=== PATIENT | female | born 1945 | race Caucasian/White ===

== ENCOUNTER → 2023-12-17 11:18 | Outpatient (REF) | payer MEDICARE, OTHER, SELFPAY | LOC: HWRAD 11:18 | PROVIDERS: ATTENDING PHYSICIAN Podiatrist Foot & Ankle Surgery; FAMILY PHYSICIAN Internal Medicine | DX: M89.9 Disorder of bone, unspecified (principal) | CPT/HCPCS: 73630 ==

== ENCOUNTER → 2023-12-28 13:33 | Outpatient (REF) | payer MEDICARE, OTHER, SELFPAY | LOC: HWWDC 13:33 | PROVIDERS: ATTENDING PHYSICIAN Nurse Practitioner | DX: Z12.31 Encounter for screening mammogram for malignant neoplasm of breast (principal) | CPT/HCPCS: 77063; 77067 ==

== ENCOUNTER → 2023-12-29 10:09 | Outpatient (REF) | payer MEDICARE, OTHER, SELFPAY ==
[2023-12-29 12:03] LABS: % Eosinophils 4.3 % (0-6); % Immature Granulocytes 0.3 % (0-0.5); % Lymphocytes 21.1 % (20.5-51.1); % Monocytes 7.7 % (1.7-9.3); % Neutrophils 65.6 % (42.2-75.2); Absolute Basophils 0.1 10^3/uL (0-0.2); Absolute Eosinophils 0.3 10^3/uL (0-0.7); Absolute Lymphocytes 1.5 10^3/uL (1.2-3.4); Absolute Monocytes 0.6 10^3/uL (0.1-0.6); Absolute Neutrophils 4.7 10^3/uL (1.4-6.5); Hematocrit 43.8 % (37.0-47.0); Hemoglobin 14.8 g/dL (12.0-16.0); Mean Corp Hgb Conc. 33.8 g/dL (33.0-37.0); Mean Corpuscular Hgb 32.7 pg (27.0-31.0); Mean Corpuscular Volume 96.9 fL (81.0-99.0); Mean Platelet Volume 9.6 fL (7.4-10.4); Nucleated Red Blood Cells % 0 %; Platelet Count 286 10^3/uL (130-400); Red Blood Cell Count 4.52 10^6/uL (4.20-5.40); Red Cell Dist. Width 12.8 % (11.5-14.5); White Blood Cell Count 7.2 10^3/uL (4.8-10.8)
[2023-12-29 12:16] LABS: ALT (SGPT) 17 U/L (0-35); AST (SGOT) 27 U/L (14-36); Albumin 4.1 g/dl (3.5-5.0); Alkaline Phosphatase 77 U/L (38-126); Blood Urea Nitrogen 35 mg/dl (7-17); Calcium 9.8 mg/dl (8.4-10.2); Carbon Dioxide 31 mmol/L (22-30); Chloride 98 mmol/L (98-107); Glucose 95 mg/dl (70-99); HDL Cholesterol 99 mg/dl; LDL Cholesterol, Calculated 89 mg/dl; Potassium 4.1 mmol/L (3.5-5.1); Sodium 138 mmol/L (135-145); Total Bilirubin 1.4 mg/dl (0.2-1.3); Total Cholesterol 201 mg/dl (50-199); Total Protein 6.9 g/dl (6.3-8.2); Triglyceride 67 mg/dl (10-149); Very Low Density Lipoprotein 13 mg/dl (0-30); eGFR 38.51
[2023-12-29 12:47] LABS: TSH 0.05 uIU/ml (0.47-4.68)
[2023-12-29 13:20] LABS: Glycohemoglobin (HgbA1c) 5.8 % (4.0-5.6)
== END ==
LOC: HWLAB 10:09
PROVIDERS: ATTENDING PHYSICIAN Internal Medicine; REFERRING PHYSICIAN Internal Medicine Cardiovascular Disease
DX: R73.03 Prediabetes (principal); E78.5 Hyperlipidemia, unspecified; Z00.00 Encounter for general adult medical examination without abnormal findings; R53.83 Other fatigue
CPT/HCPCS: 36415; 80053; 80061; 83036; 84443; 85025

== ENCOUNTER → 2024-02-03 10:52 | Outpatient (REF) | payer MEDICARE, OTHER, SELFPAY ==
[2024-02-03 13:18] LABS: Free T3 3.73 pg/ml (2.77-5.27); Free T4 1.14 ng/dl (0.78-2.19)
[2024-02-03 13:32] LABS: TSH 0.14 uIU/ml (0.47-4.68)
[2024-02-05 12:10] LABS: Thyroglobulin Antibodies <0.9 IU/mL (0.0-4.0); Thyroid Peroxidase Ab (TPO) 1.8 IU/mL (0.0-9.0)
== END ==
LOC: HWLAB 10:52
PROVIDERS: ATTENDING PHYSICIAN Internal Medicine
DX: E03.9 Hypothyroidism, unspecified (principal); R53.83 Other fatigue
CPT/HCPCS: 36415; 84439; 84443; 84481; 86376; 86800

== ENCOUNTER → 2025-01-06 08:55 | Outpatient (REF) | payer MEDICARE, OTHER, SELFPAY ==
[2025-01-06 12:43] LABS: % Basophils 1.1 % (0-2); % Eosinophils 5.6 % (0-6); % Immature Granulocytes 0.3 % (0-0.5); % Lymphocytes 29.3 % (20.5-51.1); % Monocytes 9.4 % (1.7-9.3); % Neutrophils 54.3 % (42.2-75.2); Absolute Basophils 0.1 10^3/uL (0-0.2); Absolute Eosinophils 0.4 10^3/uL (0-0.7); Absolute Lymphocytes 1.9 10^3/uL (1.2-3.4); Absolute Monocytes 0.6 10^3/uL (0.1-0.6); Absolute Neutrophils 3.5 10^3/uL (1.4-6.5); Hematocrit 44.1 % (37.0-47.0); Hemoglobin 14.8 g/dL (12.0-16.0); Mean Corp Hgb Conc. 33.6 g/dL (33.0-37.0); Mean Corpuscular Hgb 32.5 pg (27.0-31.0); Mean Corpuscular Volume 96.7 fL (81.0-99.0); Mean Platelet Volume 9.7 fL (7.4-10.4); Nucleated Red Blood Cells % 0 %; Platelet Count 271 10^3/uL (130-400); Red Blood Cell Count 4.56 10^6/uL (4.20-5.40); White Blood Cell Count 6.5 10^3/uL (4.8-10.8)
[2025-01-06 13:18] LABS: ALT (SGPT) 17 U/L (0-35); AST (SGOT) 29 U/L (14-36); Albumin 4.6 g/dl (3.5-5.0); Alkaline Phosphatase 63 U/L (38-126); Blood Urea Nitrogen 28 mg/dl (7-17); Calcium 9.9 mg/dl (8.4-10.2); Carbon Dioxide 29 mmol/L (22-30); Chloride 98 mmol/L (98-107); Glucose 99 mg/dl (70-99); HDL Cholesterol 99 mg/dl; LDL Cholesterol, Calculated 77 mg/dl; Potassium 4.4 mmol/L (3.5-5.1); Sodium 137 mmol/L (135-145); Total Bilirubin 1.5 mg/dl (0.2-1.3); Total Cholesterol 189 mg/dl (50-199); Total Protein 7.1 g/dl (6.3-8.2); Triglyceride 65 mg/dl (10-149); Very Low Density Lipoprotein 13 mg/dl (0-30); eGFR 38.27
[2025-01-06 13:39] LABS: TSH 2.15 uIU/ml (0.47-4.68)
== END ==
LOC: HWLAB 08:55
PROVIDERS: ATTENDING PHYSICIAN Nurse Practitioner; FAMILY PHYSICIAN Internal Medicine; REFERRING PHYSICIAN Internal Medicine Cardiovascular Disease
DX: I10 Essential (primary) hypertension (principal); E78.00 Pure hypercholesterolemia, unspecified; Z00.00 Encounter for general adult medical examination without abnormal findings; R53.83 Other fatigue
CPT/HCPCS: 36415; 80053; 80061; 84443; 85025

== ENCOUNTER → 2025-02-08 10:27 | Outpatient (REF) | payer MEDICARE, OTHER, SELFPAY | LOC: EMG 10:27 | PROVIDERS: ATTENDING PHYSICIAN Orthopaedic Surgery Hand Surgery; FAMILY PHYSICIAN Internal Medicine | DX: M79.642 Pain in left hand (principal); R20.0 Anesthesia of skin; G56.02 Carpal tunnel syndrome, left upper limb | CPT/HCPCS: 95886; 95909 ==

== ENCOUNTER → 2025-02-16 11:03 | Outpatient (REF) | payer MEDICARE, OTHER, SELFPAY | LOC: HWRCS 11:03 | PROVIDERS: ATTENDING PHYSICIAN Internal Medicine Cardiovascular Disease; FAMILY PHYSICIAN Internal Medicine | DX: I48.0 Paroxysmal atrial fibrillation (principal); I34.1 Nonrheumatic mitral (valve) prolapse | CPT/HCPCS: 93306 ==

== ENCOUNTER 2025-03-17 06:48 | Day surgery (SDC) | payer MEDICARE, OTHER, SELFPAY ==
[2025-03-17] VITALS (13 sets, daily range): BP systolic 115–143; BP diastolic 66–91; BMI 26.1
[2025-03-17 07:59] LABS: % Basophils 0.9 % (0-2); % Eosinophils 5.2 % (0-6); % Immature Granulocytes 0.5 % (0-0.5); % Lymphocytes 22.2 % (20.5-51.1); % Monocytes 9.4 % (1.7-9.3); % Neutrophils 61.8 % (42.2-75.2); Absolute Basophils 0.1 10^3/uL (0-0.2); Absolute Eosinophils 0.5 10^3/uL (0-0.7); Absolute Monocytes 0.8 10^3/uL (0.1-0.6); Absolute Neutrophils 5.5 10^3/uL (1.4-6.5); Hematocrit 44.6 % (37.0-47.0); Hemoglobin 14.9 g/dL (12.0-16.0); Mean Corp Hgb Conc. 33.4 g/dL (33.0-37.0); Mean Corpuscular Volume 98.9 fL (81.0-99.0); Mean Platelet Volume 9.4 fL (7.4-10.4); Nucleated Red Blood Cells % 0 %; Platelet Count 256 10^3/uL (130-400); Red Blood Cell Count 4.51 10^6/uL (4.20-5.40); Red Cell Dist. Width 13.2 % (11.5-14.5); White Blood Cell Count 8.8 10^3/uL (4.8-10.8)
[2025-03-17 08:28] LABS: Blood Urea Nitrogen 32 mg/dl (7-17); Calcium 9.7 mg/dl (8.4-10.2); Carbon Dioxide 27 mmol/L (22-30); Chloride 105 mmol/L (98-107); Estimated Creatinine Clearance 29 ml/min; Glucose 108 mg/dl (70-99); Potassium 4.6 mmol/L (3.5-5.1); Sodium 139 mmol/L (135-145); eGFR 41.83
[2025-03-17] MEDS: LOW STRENGTH ASPIRIN 324 MG PO (09:02)
[2025-03-17] MEDS: NSS 1000 IV (14:24)
--- NOTE | 2025-03-17 19:04 | ITS.CL.CATH ---
[facility] - Catheterization
Cardiac Catheterization
Procedure Report:
LEFT AND RIGHT HEART CATHETERIZATION
Date of Procedure: March 17, 2025
Referring: Tulio Bender MD
PROCEDURES:
1. Left heart catheterization, coronary angiogram.
2. Moderate sedation.
INDICATION: ASD workup
ACCESS: Right radial artery, 6Fr. sheath, under US guidance.
HEMODYNAMICS : (mmHg)
RA (m) : 14
RV (s/d,m) : 54/5, 13
PA (s/d, m) : 48/14, 26
PCWP (m) : 13
PA saturation: 79.0% on room air
AO saturation: 95.0% on room air
IVC saturation: 75.8% on room air
Pulmonary capillary wedge saturation: 85.5% on room air
RV saturation: 80.6% on room air
High RA saturation: 73.9% on room air
Mid RA saturation: 77.8% on room air
Low SVC saturation: 71.8% on room air
High SVC saturation: 70.3% on room air
Cardiac Output : 4.23 L/min by Dez calculation
Cardiac Index : 2.49 L/min/m-2 by Dez calculation
Systemic vascular resistance: 1588 dsc^(-5)
Pulmonary vascular resistance: 1.28 hermosillo unit
QP over QS: 2.95
Heart rate: 80 bpm
AO (s/d) : 141/65
LVEDP : 16
No significant gradient across the aortic valve to suggest aortic stenosis.
CORONARY FINDINGS
Dominance: Right
Left Main Trunk (LMT): Large caliber vessel that gives rise to the LAD and LCx branches and is free of angiographic disease.
Left Anterior Descending Artery (LAD): Large caliber vessel that gives off 1 major diagonal branch as it courses along the anterior inter-ventricular groove before wrapping around the cardiac apex. The mid LAD has diffuse up to 70 to 80% stenosis
just distal to the takeoff of the diagonal branch.
Left Circumflex Artery (LCx): Large caliber vessel that gives off 2 small caliber obtuse marginal (OM) branches as it courses along the atrio-ventricular (AV) groove. The LCx and its branches are free of angiographic disease.
Right Coronary Artery (RCA): Large caliber dominant vessel that gives rise to the posterior descending artery (RPDA) and postero-lateral ventricular (RPLV) branches distally. The RCA and its branches are free of angiographic disease.
SEDATION: 47 minutes of procedural sedation was utilized. IV Midazolam and IV Fentanyl were administered. An independent medical coding instructor was present to assist with and help manage the patient's level of consciousness and physiologic status.
RADIATION SUMMARY: Fluoro Time (min): 4.8, Dose (mGy): 221, DAP (Gy.cm2) : 9.37
Closure Device: There were no immediate intra-procedural complications. The sheath was pulled in the custodial laborer and a vascular-band applied to the right wrist for radial artery hemostasis using the patent hemostasis technique.
CONCLUSIONS
1. The mid LAD has diffuse up to 70 to 80% stenosis just distal to the takeoff of the diagonal branch.
2. Pulmonary pressures are less than two thirds of the systemic pressures suggesting safety of VSD closure. Given RV dilatation noted on transthoracic echocardiogram with Qp/Qs showing significant flow across the ASD, recommend ASD closure
RECOMMENDATIONS
1. Wean radial band per protocol. Monitor right hand perfusion and for bleeding from the radial site following removal of the vascular-band following trans-radial access.
2. Continue aggressive medical therapy and risk factor modification for secondary CAD prevention.
3. Outpatient cardiac gated CT to assess for rims around the ASD to discuss role for percutaneous vs. surgical closure.
Copy to: Tulio Bender MD
Faye Carrasquillo MD, [facility], [facility]
== END 2025-03-17 17:35 | disposition home or self-care (01) ==
LOC: CATH 06:48
PROVIDERS: ATTENDING PHYSICIAN Internal Medicine Interventional Cardiology; FAMILY PHYSICIAN Internal Medicine
DX: I25.10 Atherosclerotic heart disease of native coronary artery without angina pectoris (principal); Q21.11 Secundum atrial septal defect; I49.3 Ventricular premature depolarization; I08.1 Rheumatic disorders of both mitral and tricuspid valves; Z79.01 Long term (current) use of anticoagulants; I70.0 Atherosclerosis of aorta
CPT/HCPCS: 99152; 99153; 93312; 93320; 93325; 80048; 85025; 93460; C1769; C1894; Q9967

== ENCOUNTER → 2025-03-27 14:40 | Outpatient (REF) | payer MEDICARE, OTHER, SELFPAY | LOC: RAD 14:40 | PROVIDERS: ATTENDING PHYSICIAN Internal Medicine Cardiovascular Disease; FAMILY PHYSICIAN Internal Medicine | DX: Q21.10 Atrial septal defect, unspecified (principal) | CPT/HCPCS: 71275; Q9967 ==

== ENCOUNTER 2025-05-19 05:20 | Inpatient (IN) | payer MEDICARE, OTHER, SELFPAY ==
[2025-05-12 08:40] VITALS: BMI 25.7
[2025-05-12 09:35] LABS: Hematocrit 41.0 % (37.0-47.0); Hemoglobin 13.9 g/dL (12.0-16.0); Mean Corp Hgb Conc. 33.9 g/dL (33.0-37.0); Mean Corpuscular Volume 97.6 fL (81.0-99.0); Nucleated Red Blood Cells % 0 %; Platelet Count 272 10^3/uL (130-400); Red Cell Dist. Width 12.9 % (11.5-14.5)
[2025-05-12 09:36] LABS: Urine Character Slightly Cloudy (Clear)
[2025-05-12 09:49] LABS: Urine Red Blood Cell 0-2 /HPF (0-2); Urine White Cell 16-20 /HPF (0-5)
[2025-05-12 09:51] LABS: INR 1.58; PT 19.1 Sec (11.4-14.6)
[2025-05-12 10:08] LABS: ALT (SGPT) 18 U/L (0-35); AST (SGOT) 24 U/L (14-36); Albumin 4.3 g/dl (3.5-5.0); Alkaline Phosphatase 53 U/L (38-126); Blood Urea Nitrogen 36 mg/dl (7-17); Calcium 9.6 mg/dl (8.4-10.2); Carbon Dioxide 27 mmol/L (22-30); Chloride 104 mmol/L (98-107); Estimated Creatinine Clearance 21 ml/min; Glucose 99 mg/dl (70-99); Potassium 4.2 mmol/L (3.5-5.1); Sodium 140 mmol/L (135-145); Total Protein 7.1 g/dl (6.3-8.2); eGFR 28.31
[2025-05-12 12:25] LABS: Glycohemoglobin (HgbA1c) 5.6 % (4.0-5.6)
--- NOTE | 2025-05-12 14:46 | CM ---
spoke to pt in PAT's, we discussed preop CABG teaching including sternal and driving restrictions. she is prev indep, lives alone in a 2 story home with 3 steps to enter. she has a friend/POA , Justine, who will stay with her after dc as needed. she
denies any dme's. she has the cardiac educ book, soap and instructions, plan is for CABG 05/19, cm role explained and all questions answered.
[2025-05-19] VITALS (17 sets, daily range): BP systolic 97–139; BP diastolic 51–67; BMI 25.3
[2025-05-19] MEDS: MAGNESIUM OXIDE 500 MG PO (05:47)
[2025-05-19] MEDS: LOPRESSOR 25 MG PO (05:48)
[2025-05-19] MEDS: BACTROBAN 2% OINTMENT 1 APPLIC NASAL ×2 (05:48→20:16)
[2025-05-19] MEDS: PROTONIX 40 MG PO (05:48)
[2025-05-19 06:04] LABS: Blood Urea Nitrogen 33 mg/dl (7-17); Calcium 9.8 mg/dl (8.4-10.2); Carbon Dioxide 22 mmol/L (22-30); Chloride 107 mmol/L (98-107); Estimated Creatinine Clearance 23 ml/min; Glucose 101 mg/dl (70-99); Potassium 3.6 mmol/L (3.5-5.1); Sodium 139 mmol/L (135-145); eGFR 30.32
--- NOTE | 2025-05-19 06:20 | W.CVOR.SURPR ---
CVOR Surgeon Immed Pre Op
-
I have examined this patient prior to performance of the scheduled procedure.
The patient's condition is unchanged from the time of the dictated/written History and
Physical and the patient is able to undergo the scheduled procedure.
ASD, MAZE, CABG
--- NOTE | 2025-05-19 06:45 | PTCARENOTE ---
Patient arrived for SDA. Confirmed 2xCHG showers at home. Patient weighed, vital signs takes, surgically clipped, lab work obtained, preop meds administered. Patient transferred at 0630 without incident.
[2025-05-19 07:11] LABS: ACT+ - POC 118 Seconds (82-134)
[2025-05-19 07:17] LABS: Urine Character Clear (Clear)
[2025-05-19 07:29] LABS: Urine Squamous Cell 0-2 /LPF (Few)
[2025-05-19 07:33] LABS: Urine Red Blood Cell 0-2 /HPF (0-2)
[2025-05-19 08:34] LABS: ACT+ - POC 632 Seconds (82-134)
[2025-05-19 09:08] LABS: ACT+ - POC 753 Seconds (82-134)
[2025-05-19 09:32] LABS: ACT+ - POC 567 Seconds (82-134)
[2025-05-19 10:06] LABS: ACT+ - POC 126 Seconds (82-134)
[2025-05-19 10:20] LABS: B.E. - POC 1.3 mmol/L; Glucose - POC 126 mg/dl (70-99); HCO3 - POC 24 mmol/L (21-28); Hematocrit - POC 28 % PCV (37-47); Hemodilution- POC Yes; Hemoglobin Calculated - POC 9.5; Ionized Calcium - POC 1.25 mmol/L (1.15-1.33); Lactate - POC 0.43 mmol/L (0.36-0.75); O2 Saturation %Calculated-POC 100.0 % (94-98); PCO2 - POC 32 mmHg (35-48); PO2 - POC 332 mmHg (83-108); POC Comment POST; Potassium - POC 3.2 mmol/L (3.5-5.1); Sodium - POC 142 mmol/L (136-145); Specimen Type - POC Arterial; pH - POC 7.49 (7.35-7.45)
--- NOTE | 2025-05-19 10:33 | W.PN.CT.SURG ---
CT Surgery Operative Note
-
CARDIAC SURGERY OPERATIVE REPORT
Preoperative Diagnosis: Atrial septal defect, secundum type, paroxysmal atrial fibrillation, single-vessel coronary artery disease
Postoperative Diagnosis: Same
Procedure(s) Performed:
1. Standard sternotomy with aortic and bicaval cannulation
2. Full left atrial maze using RF ablation and cryo
3. Left atrial appendage exclusion
4. Single-vessel coronary artery bypass grafting [HANDY to LAD]
5. Harvesting of internal mammary artery, left
6. Patch closure of atrial septal defect
7. Transesophageal echocardiography
8. Placement temporary atrial ventricular pacing wires
Date of Surgery: 05/19/2025
Comorbidities:
1. Paroxysmal atrial fibrillation
2. Atrial septal defect, secundum type with elevated shunt fraction
3. Single-vessel coronary artery disease involving the LAD
4. Mild tricuspid valve insufficiency
5. Mitral valve prolapse with mild to trace MR
6. Osteoarthritis
7. Former smoker
8. Hypertension
9. Hyperlipidemia
10. Colonic polyps and diverticulosis
Attending Surgeon: Noam Lizarraga MD, MS
Assistants: Eleanor Pickett PA-C (present and necessary to real estate administrative assistant, retraction, suction, exposure, suture management, and wound closure under my direction)
Anesthesiology: Osito Javier MD and Mykel Ramsey CRNA
Scrub and Circulating RNs: Isiah Antunez RN, Rosalba Pineda RN
Jitterbug Operator: Cecil Brooks CCP
Anesthesia: GETA
EBL: per perfusion records
Products: None
CPB Time: 75 minutes
Aortic Cross Clamp Time: 53 minutes
Indication(s) for Procedures: This is a 79-year-old female who was found to have major septal defect, with preserved left ventricular and right ventricular function. She had elevated vbgl-gl-kyirl shunt with a QP/QS of 2.9. She was also found to
have paroxysmal atrial fibrillation and was on chronic anticoagulation in the form of Eliquis. As part of her workup she underwent left heart cath and was found to have significant proximal to mid LAD disease. She was initially referred for
transcatheter invention however given the location of the ASD and the lack of a significant rim towards the aortic root, she was referred to surgery for consideration of repair. She has excellent functional status and is very active and independent
and overall shared decision making was to pursue operative intervention.
Findings: She had an approximately 1.6 x 1.8cm atrial septal defect, send secundum type. There was as seen on multiple imaging studies a poor rim around the aortic root area. Left ventricular action fraction preoperatively was 65% and somewhat
hyperdynamic. Following surgery EF remained the same at 60% with no regional wall motion abnormalities. There was no residual flow across the atrial defect after patch closure. I used a 2.0 x 1.8 centimeter elliptical shaped patch and anchored at
each apex and then around the patch circumferentially. I then also placed several 5-0 Prolene repair and reinforcement sutures in interrupted fashion. A full left atrial maze was performed using the encompass clamp as well as cryoablation, see the
ablation lines below. The left atrial [place] was verified to be free of any thrombus or debris preoperatively and found to be totally occlusive postoperatively the HANDY was harvested in a skeletonized fashion and a single-vessel bypass was
performed to the LAD after the diagonal vessel. There is excellent visual flow in the LAD territory with visual pinking up of the myocardium as well as blood flow. After coming off cardiopulmonary bypass, there is no residual flow across the
interatrial septum, RV was normal in function and size. LV is also normal in function and size. She did not require any blood products. She did not require pacing initially however we did do DDI pacing at a rate of 80 given that she was sinus
bradycardic at the end of the case. The [place] was to be floated after the case. She did not require nitro support and actually was hypertensive after coming off cardiopulmonary bypass..
Ablation Lines:
1. Box lesion to posterior LA wall
2. VERONIQUE lesion + VERONIQUE Exclusion
3. Coronary sinus lesion
4. Posterior mitral annular line toward P2/P3
Specimen(s): none
Prosthesis:
1. Bovine pericardium, serial number [id number]
2. 35mm left atrial appendage clip, serial #[id number].
Description of Procedure: The patient was taken to the operating room. Their identity and procedure to be performed were verified and they were positioned supine on the operating table. Induction via general anesthesia with endotracheal intubation
was performed and central venous access and arterial monitoring were inserted. A preoperative transesophageal echocardiogram was performed to assess cardiac function and valvular function. The patient was then prepped and draped from chin to feet in
a sterile fashion. A preoperative time-out was performed with all members of the team present. A midline chest incision was performed along with median sternotomy. The innominate vein was isolated. Full heparinization was given (a total of 45,000
units). We created a pericardial well. The aortic cannulation site was chosen where it was soft, pliable, and free of calcium. Cannulation was performed with an arterial cannula in the ascending aorta, angled metal tip cannular in the superior vena
cava and straight bendable cannula in the inferior vena cava. The arterial cannula line had an appropriate bounce and correlating pressures. Next, a root vent/antegrade cannula was inserted into the ascending aorta. The ACT was confirmed to be over
400 and retrograde autologous priming was performed before commencing cardiopulmonary bypass. At this point the SVC was away from the right pulmonary artery. In the oblique sinus was also developed. The encompass clamp was passed
underneath the SVC and IVC across the transverse and oblique sinuses, respectively. 3 successful pairs of ablation were performed with the encompass clamp. The LAD was identified and marked with a pen. The pulmonary artery was away from
the aorta to facilitate a clamp site. The aortic cross-clamp was placed after decreasing the flow on the bypass and mean arterial pressure. A total of 1.0L initial dose of antegrade Del-Nido cardioplegia solution was given and planned for re-dosing
every 75 minutes as necessary. There was rapid electro-mechanical arrest of the heart at 250 cc of cardioplegia. The left ventricle was observed for distention on echocardiogram and manual palpation. Cold slush was placed into a lap on the RV and we
systemically cooled to 34 degrees centigrade. Once the heart was fully arrested it was rotated medially and the tip of the left atrial appendage was incised. I then placed the RF clamp across the left atrial appendage into the left superior
pulmonary vein across the ablation line that had made previously. 2 successful pairs ablation were then performed and then the left atrial appendage was clipped with a 35mm device.
At this point since I had the heart exposed for the LAD, a small [place] blade was used to isolate the vessel and create a small coronary arteriotomy. The mammary was then brought into the field and a small incision was made on the underbelly. A
side to side anastomosis was created with 7-0 Prolene and then tied down. The bulldog clamp was then removed off the mammary and there was excellent visual flow in the LAD territory towards the apex. The bulldog clamp was then replaced on the
mammary.
Carbon dioxide was used to flood the field. Snares were placed around the SVC and IVC in a vertical incision was made upon the right atrium down towards the rosemary terminalis. Stay sutures were placed. At this point I verified the location of the
ASD and measured it with a ruler. I also identified the coronary sinus and saw my venous cannula going down to the IVC. I inspected for any pulmonary veins which I did not see any. At this point a small left atrial incision was then created at
Sondergaard's groove and I performed additional cryo lines toward the coronary sinus and the overlapping mitral isthmus line via the left atrium. A vent was then placed across the left atriotomy while a patch was fashioned out of bovine pericardium
and then parachuted into place after securing each apex. I then ran the stitches circumferentially and tied them together. Multiple 5-0 Prolene's replaced circumferentially to reinforce the patch. Once the patch was completed I then allowed the
heart to fill at the left atrium and the left atriotomy was closed with 3-0 Prolene in a running fashion. The left heart was allowed to passively fill while I was closed the right atrium with 5-0 Prolene. Once a single layer suture line was
performed I then placed the patient to his steep Trendelenburg position and remove the snares from the SVC and IVC. De-airing maneuvers were then performed with lung inflation and filling of the heart. The aortic cross clamp was removed and flows
were slowly brought back up. The bulldog clamp was then removed off the mammary. The left atrial suture line was hemostatic. I then completed the right atriotomy closure with a second layer of 5-0 Prolene. Additional ventricular and atrial
pacing wires were placed at the base of the ventricle and the SVC right atrial junction, respectively. Transesophageal echocardiography revealed no residual flow across the interatrial septum. There is initially a mild to moderate degree of
tricuspid valve insufficiency that did return to baseline of mild. She was in a sinus rhythm in the 50s to 60s. Once we were off cardiopulmonary bypass, the venous cannulas was clamped and removed sequentially. A test dose of protamine was
administered and the patient was monitored for any adverse reaction before resuming protamine. Once half of the protamine dose was delivered, pump suckers were turned off and the systolic blood pressure was lowered for aortic decannulation. The
aortic cannula was removed and purse strings were tied down. Additional repair using 3-0 Prolene that was pledget was required at the aortic cannulation site as the tissue was quite friable all cannulation sites were oversewn with a 4-0 prolene.
The left and right atrial suture line was inspected and hemostasis was confirmed. Mediastinal hemostasis was obtained. Two #24 Tj drains were placed within the pericardium and a single #19 Tj drain was placed into the left hemithorax. The
sternum was approximated with 4 #7 single and 3 #8 double stainless steel wires. Fascia was approximated with #1 vicryl suture. The subcutaneous, dermis and epidermis were closed in layers in a running fashion. The skin wound was cleansed and
dressed.
All instrument, sponge, and needle counts were confirmed to be correct x 2 at the end of the operation. The patient was transferred to the cardiac intensive care unit in critical but stable condition.
I, Dr. Noam Lizarraga, was present, scrubbed for, and performed all critical elements of this procedure.
Noam Lizarraga MD, MS
Cardiothoracic Surgeon
[facility] [address]
This dictation was created using the [email or web address] dictation system. Please excuse any grammatical, typographical, or 'sound alike' errors
[2025-05-19 11:04] LABS: Hematocrit 31.3 % (37.0-47.0); Hemoglobin 11.2 g/dL (12.0-16.0); Platelet Count 141 10^3/uL (130-400)
[2025-05-19 11:06] LABS: Glucose - Point of Care 119 mg/dl (70-99)
[2025-05-19 11:15] LABS: INR 1.82; PT 21.2 Sec (11.4-14.6)
[2025-05-19 11:16] LABS: APTT 25.2 Sec (23.4-35.0); B.E. 0.2 mmol/L; HCO3 23.1 mmol/L (21-28); O2 Saturation % 100.0 % (94-98); PCO2 31 mmHg (32-35); PO2 234 mmHg (83-108); Potassium 3.3 mMOL/L (3.5-5.1); Sodium 137 mMOL/L (136-145)
--- NOTE | 2025-05-19 11:19 | CM ---
pt in OR today, cm to follow
--- NOTE | 2025-05-19 11:22 | PTCARENOTE ---
Received pt from [facility] @ 1100; pt intubated and sedated; pupils 2mm and reactive; 100% A/V paced on monitor and VSS; Epicardial A/V wires in place and se to DDI 80/10/0.5, 80/10/2; RIJ Jeanine, [place] floated to 40, Left A-line and PIV x1 all lines
leveled and zeroed; Insulin, Precedex, Cardene and Levo infusing see flow sheet for details; Lungs diminished; CT x3 to -20 wall suction no air leak and no crepitus noted; ETT 8 22 @ lip; vent settings SIMV 40%/ 450/5/14; hypoactive bowel sounds;
[place] catheter draining clear yellow urine; palpable pulses throughout; no edema noted; all surgical sites C/D/I; see nursing documentation for further details.
CI 1.62
CO 2.75
SVR 1832
[2025-05-19] MEDS: ANCEF 10 IV ×2 (11:25)
[2025-05-19] MEDS: NSS 500 IV (11:25)
[2025-05-19] MEDS: KCL 50 IV ×2 (11:25→12:31)
--- NOTE | 2025-05-19 11:25 | CON.INTV ---
Consultation
Consultation Request
Date/Time Consultation Requested: 05/19/25
Date/Time Consultation Performed: 05/19/25
Performing Provider: Nasima
Reason for Consultation: CVICU
Medical History
-
History of Present Illness:
Patient is a 79-year-old female with history of hypertension, paroxysmal atrial fibrillation, hyperlipidemia, atrial septal defect, CAD presenting for elective cardiac surgery. She had underwent transesophageal echocardiogram on 03/17/2025 which
showed normal EF and large atrial septal defect with jhlg-ii-dmaon shunting on color flow. She then underwent cardiac catheterization on 03/17/2025 demonstrating LAD disease. Underwent left atrial maze, single-vessel coronary bypass, closure of
atrial septal defect on 05/19/2025. Transferred postoperatively to CVICU for further management.
Past Medical History
Past Medical History: Other (see list below)
Social History
Tobacco: Former Smoker
Alcohol: None
Drug: None
Family History
Family History: Reviewed & Not Pertinent
Allergies / Home Medications
Allergies
Allergy/AdvReac Type Severity Reaction Status Date / Time
levofloxacin (From [facility]) Allergy Pharmacy Verified 05/10/25 15:38
to Review
Home Medications
�Medication �Instructions �Recorded �Confirmed �Last Taken �Type
acyclovir 200 mg capsule 200 mg PO DAILYPRN PRN cold sores 12/03/18 05/19/25 2 Months Ago History
~03/19/25
diltiazem HCl 180 mg capsule,24 180 mg PO DAILY Heart 12/03/18 05/19/25 05/18/25 History
hr,extended release disease/condition
eszopiclone 3 mg tablet (Lunesta) 3 mg PO HS Sleep 12/03/18 05/19/25 05/18/25 History
fexofenadine 180 mg tablet 180 mg PO DAILY Allergies 12/23/22 05/19/25 05/18/25 History
multivitamin 1 tab PO DAILY Supplement 12/23/22 05/19/25 05/16/25 History
apixaban 5 mg tablet (Eliquis) 5 mg PO BID Blood Clot 03/17/25 05/19/25 05/16/25 History
Prevention/Tx
atorvastatin 40 mg tablet 40 mg PO QPM #90 tabs 03/17/25 05/19/25 1 Day Ago Rx
~05/18/25
famotidine 20 mg tablet (Pepcid) 20 mg PO DAILY Gastrointestinal 03/17/25 05/19/25 05/18/25 History
Issue
carboxymethylcellulose sodium 1 % 2 drp ophthalmic (eye) BID PRN dry 05/10/25 05/19/25 05/19/25 History
eye liquid gel drops eye
diclofenac sodium 1 % topical gel 2 g topical QID feet and knees 05/10/25 05/19/25 2 Weeks Ago History
~05/05/25
dorzolamide 2 % eye drops 1 drp ophthalmic (eye) BID LEFT 05/10/25 05/19/25 05/19/25 History
eye only
gabapentin 300 mg capsule 300 mg PO TID Neurological 05/10/25 05/19/25 05/18/25 History
Condition
latanoprost 0.005 % eye drops 1 drp ophthalmic (eye) QPM Glaucoma 05/10/25 05/19/25 05/19/25 History
magnesium 1 tab PO DAILY Supplement 05/10/25 05/19/25 05/18/25 History
losartan 50 mg tablet 50 mg PO DAILY Blood Pressure 05/19/25 05/19/25 05/16/25 History
metoprolol succinate 25 mg 25 mg PO DAILY Blood Pressure 05/19/25 05/19/25 05/16/25 History
tablet,extended release 24 hr
triamterene 37.5 1 tab PO DAILY Blood Pressure 05/19/25 05/19/25 05/16/25 History
mg-hydrochlorothiazide 25 mg tablet
Review of Systems
-
History Source: Patient
All other systems: Negative unless noted
Vitals / Labs / Diagnostic Testing
Vital Signs
Temp Pulse Resp BP Pulse Ox
95.7 F L 80 14 139/63 99
05/19/25 11:04 05/19/25 11:00 05/19/25 11:04 05/19/25 05:48 05/19/25 11:04
Laboratory Results
05/19/25
10:55
PT 21.2 H
INR 1.82
APTT 25.2
pH 7.48 H
pCO2 31 L
pO2 234 H
HCO3 23.1
O2 Delivery Level
Diagnostic Testing:
Physical Exam
-
HEENT: Normocephalic, Anicteric and Moist Mucous Membranes
Cardiovascular: S1/S2 and Regular Rhythm
Respiratory: Clear, Non-Labored Respirations and Other (ETT/chest tube)
GI: Soft, Non Distended and Non Tender
Neurology: Other (sedated/intubated)
Skin: Warm, Dry and Good Color
General: Comfortable and Other (NAD)
Assessment
-
Patient is a 79-year-old female with history of hypertension, paroxysmal atrial fibrillation, hyperlipidemia, atrial septal defect, CAD presenting for elective cardiac surgery. She had underwent transesophageal echocardiogram on 03/17/2025 which
showed normal EF and large atrial septal defect with wwoi-es-kgvee shunting on color flow. She then underwent cardiac catheterization on 03/17/2025 demonstrating LAD disease. Underwent left atrial maze, single-vessel coronary bypass, closure of
atrial septal defect on 05/19/2025. Transferred postoperatively to CVICU for further management.
ASD and LAD dx s/p left atrial maze/Left atrial appendage exclusion/Single-vessel coronary artery bypass grafting [HANDY to LAD]/Patch closure of atrial septal defect 05/19/25
Postop anemia
ABI on CKD (creat BL 1.3)
Conditions present PATTERNATOR
Paroxysmal atrial fibrillation
Atrial septal defect, secundum type with elevated shunt fraction
Single-vessel coronary artery disease involving the LAD
Mild tricuspid valve insufficiency
Mitral valve prolapse with mild to trace MR
Osteoarthritis
Former smoker
Hypertension
Hyperlipidemia
Colonic polyps and diverticulosis
Plan
S/p ASD closure/CAB x 1 POD #0
Titrate off pressors per protocol
ECHO reviewed with normal function
PA catheter readings reviewed
Management of chest tubes per primary service
Intubated/sedated, initiate SAT when able
Pain control
RASS goal of 0 to -1
Intubated for procedure, SBT trial when patient able to spontaneously breath
Current vent settings: SIMV 450/14/40/5
ABG(s) reviewed/adequate
CXR with mild congestion, ETT in good position, lines/tubes in place
Extubate per protocol
Maintain supplement oxygen as needed
No prior history of pulmonary disease/No Prior PFT for review
Can add nebulizers if needed
Aspiration precautions
Encouraged incentive spirometry, OOB/ambulation/early mobility
Advance diet as tolerated following extubation
GI prophylaxis if indicated for mechanical ventilation >48 hours
Monitor critical I/O's
Zuluaga/chest tube output
Hb/platelets postoperatively stable
Trend CBC for now
Can transfuse if indicated for Hb <7, plt <50 in surgical patients
DVT prophylaxis including SCDs
Insulin protocol initiated and ongoing
Transition to SQ/off as indicated per team
We will follow
Diagnostic Data
Chest X-Ray: 05/19/25- Mild pulmonary vascular congestion. Haziness of left hemidiaphragm, suggestive of mild left basilar subsegmental atelectasis.
CT Scan: CTA 03/27/25- No acute pathology of the chest identified. Prominent pulmonary trunk suggesting pulmonary hypertension. Clinical correlation recommended. Mild atherosclerotic vascular disease
Small left parapelvic renal cysts. Mild left renal atrophy. Bilateral subcentimeter hypodense thyroid lesions likely benign nodules. Dedicated thyroid ultrasound recommended if not previously evaluated.
Echo: SUDHAKAR 03/17/25- Normal left ventricular size, wall thickness and systolic function. No regional wall motion abnormalities are seen. The ejection fraction is estimated at 60- 65%. Normal right ventricular size and function.
Mild tricuspid regurgitation. Large secundum atrial septal defect with evidence of wnob-wt-qsoti shunt by color-flow Doppler.
[facility] 03/17/25- 1. The mid LAD has diffuse up to 70 to 80% stenosis just distal to the takeoff of the diagonal branch. 2. Pulmonary pressures are less than two thirds of the systemic pressures suggesting safety of VSD closure. Given RV dilatation
noted on transthoracic echocardiogram with Qp/Qs showing significant flow across the ASD, recommend ASD closure
PFT's:
Reports and relevant images were personally reviewed.
Critical Care time 50 mins -- The patient is admitted for acute critical illness for the treatment of vital organ failure and/or prevention of further life-threatening conditions. Total care includes time spent in review of history, physical exam,
medications, hemodynamic/ventilator parameters, laboratory data, imaging and discussion with house staff, pharmacy, respiratory therapy, wireless engineer, and nursing.
[2025-05-19] MEDS: NEURONTIN PO ×4 (11:26→22:45)
[2025-05-19 11:28] LABS: B.E. - POC -2.9 mmol/L; Glucose - POC 111 mg/dl (70-99); HCO3 - POC 23 mmol/L (21-28); Hematocrit - POC 36 % PCV (37-47); Hemodilution- POC No; Hemoglobin Calculated - POC 12.3; Ionized Calcium - POC 1.20 mmol/L (1.15-1.33); Lactate - POC < 0.30 mmol/L (0.36-0.75); O2 Saturation %Calculated-POC 99.9 % (94-98); PCO2 - POC 42 mmHg (35-48); PO2 - POC 337 mmHg (83-108); POC Comment PRE; Potassium - POC 3.0 mmol/L (3.5-5.1); Sodium - POC 143 mmol/L (136-145); Specimen Type - POC Arterial; pH - POC 7.34 (7.35-7.45)
[2025-05-19 11:29] LABS: B.E. - POC 3.0 mmol/L; Glucose - POC 133 mg/dl (70-99); HCO3 - POC 26 mmol/L (21-28); Hematocrit - POC 27 % PCV (37-47); Hemodilution- POC Yes; Hemoglobin Calculated - POC 9.3; Ionized Calcium - POC 0.99 mmol/L (1.15-1.33); Lactate - POC < 0.30 mmol/L (0.36-0.75); O2 Saturation %Calculated-POC 100.0 % (94-98); PCO2 - POC 31 mmHg (35-48); PO2 - POC 389 mmHg (83-108); POC Comment CPB; Potassium - POC 3.7 mmol/L (3.5-5.1); Sodium - POC 141 mmol/L (136-145); Specimen Type - POC Arterial; pH - POC 7.53 (7.35-7.45)
[2025-05-19 11:29] LABS: B.E. - POC 3.3 mmol/L; Glucose - POC 110 mg/dl (70-99); HCO3 - POC 25 mmol/L (21-28); Hematocrit - POC 25 % PCV (37-47); Hemodilution- POC Yes; Hemoglobin Calculated - POC 8.5; Ionized Calcium - POC 0.94 mmol/L (1.15-1.33); Lactate - POC < 0.30 mmol/L (0.36-0.75); O2 Saturation %Calculated-POC 100.0 % (94-98); PCO2 - POC 28 mmHg (35-48); PO2 - POC 515 mmHg (83-108); POC Comment CPB; Potassium - POC 3.9 mmol/L (3.5-5.1); Sodium - POC 140 mmol/L (136-145); Specimen Type - POC Arterial; pH - POC 7.56 (7.35-7.45)
[2025-05-19] MEDS: LR 250 ML IV ×5 (11:36→22:00)
[2025-05-19 12:04] LABS: Glucose - Point of Care 114 mg/dl (70-99)
--- NOTE | 2025-05-19 12:07 | W.PN.CARDCBS ---
Addendum entered and electronically signed by Anirudh Culp DO 05/19/25 12:59:
I saw and examined the patient.
The Abnormal Psychology Teacher's note was reviewed and I agree with the note.
Comment:
Patient seen postoperatively status post CABG x 1, ASD closure, VERONIQUE clip, maze
Patient intubated and sedated on mechanical ventilation; off vasopressor support
EKG a paced V paced (epicardial wires at DDI [address] surgery)
Plan to continue monitor on telemetry
Diurese as able; add GDMT when able
Wean pacer as tolerated
Supportive care
Discussed with nursing, CT surgery
Original Note:
Today's Communication / Plan
-
continue post op care
av paced
Impression / Plan
-
Primary Grinder Set Up Operator Universal: Dr. ZA Bender
Assessment:
s/p CABG x1 HANDY to LAD, closure of ASD, VERONIQUE clip, MAZE 05/19/25
ASD
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
LAD disease by cath
Paroxysmal atrial fibrillation
Chronic anticoagulation with Eliquis
Hypertension
MVP
GERD
Hypercholesterolemia
Osteoarthritis
PVCs
Mild peripheral neuropathy
ECHO 02/16/25: EF 60 to 65%, no regional wall motion abnormalities noted, mild TR with PAP 48 mmHg, color flow pattern suggestive of ASD/PFO with bsba-zo-oajmt flow, trivial pericardial effusion
SUDHAKAR 03/17/2025: EF 60 to 65%, no regional wall motion abnormalities noted, mild TR, large secundum ASD with evidence of lozs-gd-cckov shunt by Doppler
Plan:
-s/p CABG x1 HANDY to LAD, closure of ASD, VERONIQUE clip, MAZE 05/19/25
-intubated, sedated
-currently off pressors. CI 1.62
-currently av paced by EKG. set at DDI @80 - was noted to be bradycardic intraop
-swan placed post op due to concern for CHF, naze as able
-continue post op care
-d/w nursing
Progress Note - Grinder Set Up Operator Universal
Subjective
Date of Service: May 19, 2025
intubated, sedated
Objective
Labs:
Labs
Hgb 11.2 g/dL (12.0-16.0) L 05/19/25 10:55
Hct 31.3 % (37.0-47.0) L 05/19/25 10:55
Plt Count 141 10^3/uL (130-400) 05/19/25 10:55
PT 21.2 Sec (11.4-14.6) H 05/19/25 10:55
INR 1.82 05/19/25 10:55
APTT 25.2 Sec (23.4-35.0) 05/19/25 10:55
Sodium 139 mmol/L (135-145) 05/19/25 05:27
Potassium 3.6 mmol/L (3.5-5.1) 05/19/25 05:27
BUN 33 mg/dl (7-17) H 05/19/25 05:27
Creatinine 1.7 mg/dL (0.6-1.0) H 05/19/25 05:27
Glucose 101 mg/dl (70-99) H 05/19/25 05:27
Vital Signs and I&O:
Vital Signs
Temp Pulse Resp BP Pulse Ox
95.6 F L 86 14 101/65 99
05/19/25 12:00 05/19/25 12:00 05/19/25 12:00 05/19/25 12:00 05/19/25 12:00
Vital Signs
Temp Pulse Resp BP Pulse Ox
95.6 F L 86 14 101/65 99
05/19/25 12:00 05/19/25 12:00 05/19/25 12:00 05/19/25 12:00 05/19/25 12:00
Intake & Output
05/17/25 05/18/25 05/19/25 05/20/25
07:59 07:59 07:59 07:59
Intake Total 401.5 / 401.5
Output Total 615 / 615
Balance -213.5 / -213.5
Physical Exam
Physical Exam
GEN: No distress, intubated, sedated. on kamar hugger
HEENT: supple, mmm
LUNGS: CTA B/L, no wheezes/rales
CV: Reg, S1/S2, no murmur
ABD: soft, BS+, NT/ND
EXT: No cyanosis, clubbing, edema
NEURO: Gross non-focal
SKIN: Warm, pink, dry. No rash. Sternotomy incision c/d/i. CTs in place
: dena
[2025-05-19 12:28] LABS: Blood Urea Nitrogen 27 mg/dl (7-17); Estimated Creatinine Clearance 27 ml/min; Glucose 114 mg/dl (70-99); Magnesium 2.8 mg/dl (1.6-2.3)
[2025-05-19 13:02] LABS: Glucose - Point of Care 104 mg/dl (70-99)
[2025-05-19 13:59] LABS: Glucose - Point of Care 73 mg/dl (70-99)
--- NOTE | 2025-05-19 14:14 | PTCARENOTE ---
Dr Culp and CTNP at bedside; pacer tested by MD and new setting AAI 70/10/0.5; 100% A-paced on monitor and VSS; assessment unchanged.
--- NOTE | 2025-05-19 14:35 | PTCARENOTE ---
Addendum entered by Luba Stallings RN 05/19/25 15:00:
Pt Apneic on CPAP; respiratory at bedside and pt placed back on SIMV.
Original Note:
Respiratory at bedside and pt placed on CPAP.
[2025-05-19] MEDS: TYLENOL PO ×2 (14:36→22:14)
[2025-05-19] MEDS: OFIRMEV 100 IV (14:41)
[2025-05-19 14:54] LABS: Glucose - Point of Care 90 mg/dl (70-99)
[2025-05-19 15:06] LABS: Hematocrit 30.8 % (37.0-47.0); Hemoglobin 10.7 g/dL (12.0-16.0); Platelet Count 152 10^3/uL (130-400)
[2025-05-19] MEDS: ALBUMIN 5% 250 IV (15:20)
--- NOTE | 2025-05-19 15:38 | PTCARENOTE ---
Pt wake and following commands; Respiratory at bedside and pt placed on CPAP.
[2025-05-19] MEDS: PACERONE PO (16:05)
[2025-05-19 16:13] LABS: B.E. - POC -1.9 mmol/L; Blood Urea Nitrogen - POC 22 mg/dl (3-120); Chloride - POC 111 mmol/L (96-111); Creatinine - POC 1.47 mg/dl (0.3-1.0); Glucose - POC 98 mg/dl (70-99); HCO3 - POC 24 mmol/L (21-28); Hematocrit - POC 33 % PCV (37-47); Hemodilution- POC Yes; Hemoglobin Calculated - POC 11.1; Ionized Calcium - POC 1.23 mmol/L (1.15-1.33); Lactate - POC 1.10 mmol/L (0.36-0.75); O2 Saturation %Calculated-POC 98.8 % (94-98); PCO2 - POC 42 mmHg (35-48); PO2 - POC 129 mmHg (83-108); Potassium - POC 3.7 mmol/L (3.5-5.1); Sodium - POC 145 mmol/L (136-145); Specimen Type - POC Arterial; pH - POC 7.36 (7.35-7.45)
--- NOTE | 2025-05-19 16:15 | PTCARENOTE ---
EPOC labs reviewed with CTNP; respiratory at bedside and pt extubated; 6: NC; A-paced on monitor and VSS.
[2025-05-19 17:04] LABS: Glucose - Point of Care 114 mg/dl (70-99)
[2025-05-19] MEDS: LIPITOR PO (17:15)
[2025-05-19] MEDS: XALATAN OPHTHALMIC SOLUTION 1 DROP OPHTH (17:27)
[2025-05-19] MEDS: ZOFRAN 4 MG IV (17:27)
[2025-05-19] MEDS: LOW STRENGTH ASPIRIN 81 MG PO (17:27)
[2025-05-19 19:06] LABS: Glucose - Point of Care 93 mg/dl (70-99)
[2025-05-19] MEDS: SENOKOT-S PO (19:53)
[2025-05-19] MEDS: BACTRIM 400 MG/80 MG 1 TABLET PO (20:16)
[2025-05-19] MEDS: DILAUDID 0.25 MG IV (20:17)
--- NOTE | 2025-05-19 20:30 | PTCARENOTE ---
Patient received resting in bed. Patient A+A+Ox3. No neurological deficits noted. No c/o headache, dizziness or lightheadedness. No c/o nausea. Tolerating a few ice chips and sips of water. No vomiting. O2 at 6L via NC. SpO2 100%. Lungs
diminished. No adventitious breath sounds noted. Three chest tubes - Mediastinal x2 and Left Pleural - Intact and patent - 10 ml red drainage - No air leak - Dressing intact. Temporary Epicardial Pacemaker - AV Wires - AAI 70/10/0.5 - 100%
A-Pacing, occasional PAC. Patient with no c/o chest pain, pressure or discomfort. Abdomen soft, nontender. No BM. Hypoactive bowel sounds. Zuluaga catheter - Temperature sensing - Yellow, clear urine - Outputs as documented. Patient with no c/o
back or flank pain. Right I.J. Cordis with [place] Inna Catheter. Left radial arterial line. A-Line, PAP, CVP pressure bag/saline flush - Flush without difficulty - Zeroed and calibrated - Waveforms within normal limits. C.O. 3.36 C.I. 2.00 SVR
1785 PAP 36/18 (83) CVP 10 Levophed gtt titrated to off. SBP 90-110. IV Dilaudid 0.25 mg for pain management. Afebrile. Sternal incision intact - Surgical adhesive - Ecchymosis - Open to air. Trace edema. Positive, palpable pulses.
Insulin gtt. Assessment as documented.
[2025-05-19 21:03] LABS: Glucose - Point of Care 103 mg/dl (70-99)
[2025-05-19] MEDS: ANCEF 5 IV (22:41)
[2025-05-19] MEDS: PACERONE 200 MG PO (22:49)
[2025-05-19 23:00] LABS: Glucose - Point of Care 102 mg/dl (70-99)
--- NOTE | 2025-05-19 23:00 | PTCARENOTE ---
Patient resting in bed. Patient A+A+Ox3. No neurological deficits noted. LR IV bolus 250 ml x1 - Decreased urine output -CVP 5-6. Patient refused Gabapentin 300 mg PO. Patient took Amiodarone 200 mg PO without difficulty. C.O. 3.73 C.I. 2.22
SVR 1415. O2 at 3L via NC. SpO2 99%. No further changes from previous assessment.
[2025-05-20] VITALS (27 sets, daily range): BP systolic 82–140; BP diastolic 57–73; PULSE 57; O2SAT 96; BMI 25.3
--- NOTE | 2025-05-20 00:40 | W.PN.CT ---
Addendum entered and electronically signed by Reed Rivers MD 05/20/25 09:23:
I saw and examined the patient.
The PA's note was reviewed and I agree with the note.
Comment:
PATTY 2260: POD#1 s/p ASD, CABG x 1, MAZE, ELAA
No major overnight events. Extubated. AB.33/30/96/15.8/-8.9/98.8. AVSS. UO: adequate. CTs ok. GTTS: insulin only
- OOB/IS/ambulate
- De-line
- Maintain CTs today
- Currently paced at AAI @ 70 - sinus anastasia in high 50s under - hold BB/amio - wean pacer today
Original Note:
Today's Communication / Plan
-
- POD #1
- Doing well.� No major events overnight.
- Extubated 1600 to LFNC
- Tele review: AAI paced @ 70, still with underlying sinus bradycardia in 50s. holding amio/metoprolol
- Gtt's: Levo now off, insulin continued
- RA 8, PA 40/16, CO 3.61, CI 2.15, SVR 1373
- de-lined
- CTs 2m 75/145 cc L/R PL 140/280 cc out in 12/24 hrs
- UOP 410/1755 cc out in 12/24 hrs
- wean down/off O2, IS use reinforced
- Continue current meds: atorvastatin, mag ox, asa, PPI, Plavix
- Continue Bactrim for E. coli UTI
- multimodal pain management
- Bowel regimen
- OOB, ambulate as tolerated
Assessment / Plan
-
ASD, PAF, ASCVD in LAD 70-80% stenosis s/p ASD repair, CABG x1 (HANDY to LAD), MAZE, VERONIQUE clip (35 mm) on 05/[address] Lizarraga POD #1
Post op SUDHAKAR LVEF 60%, no RWMA, no flow across ASD, mild TR
Mild tricuspid valve insufficiency
Mitral valve prolapse with mild to trace MR
Osteoarthritis
Former smoker
Hypertension
Hyperlipidemia
Colonic polyps and diverticulosis
Acute post op respiratory insufficiency
E. Coli UTI
Acute post op sinus bradycardia
Acute post op blood loss anemia (expected)
Subjective
Procedure
s/p ASD repair, CABG x1 (HANDY to LAD), MAZE, VERONIQUE clip (35 mm) on 05/[address] Lizarraga
-
Date of Service: May 20, 2025
Objective Data
-
PT 21.2 Sec (11.4-14.6) H 05/19/25 10:55
INR 1.82 05/19/25 10:55
APTT 25.2 Sec (23.4-35.0) 05/19/25 10:55
Vital Signs
Vital Signs
Temp Pulse Resp BP Pulse Ox
97.3 F 70 14 102/59 99
05/20/25 00:00 05/20/25 00:06 05/20/25 00:00 05/20/25 00:00 05/20/25 00:06
CT Intake/Output/Weight
05/19/25 05/19/25 05/20/25
06:59 18:59 06:59
Intake Total 1861.9 / 2498.9 637.0 / 2498.9
Output Total 1555 / 1900 345 / 1900
Balance 306.9 / 598.9 292.0 / 598.9
SaO2: 99
Physical Exam
-
General: Awake, Oriented and AOx3
Cardiovascular: Regular rate & rhythm, No Murmurs and No Rub
Respiratory: Clear, Equal and Decreased Breath Sounds
Sternum: Stable
Incision: Clean, Dry and Intact
Extremities: No Edema and No Erythema
Data Reviewed
-
Lab Results: Results Reviewed
Medications: Active Meds Reviewed
Chest X-Ray: Report Reviewed and Image Reviewed
ECG: Report Reviewed
--- NOTE | 2025-05-20 01:00 | PTCARENOTE ---
Patient sleeping. C.O. 3.10 C.I. 1.85 SVR 1625 PAP 31/16 (22) CVP 7. DEVELOPING MACHINE TENDER for CT Surgery, Davian Marmolejo DEVELOPING MACHINE TENDER, made aware. Patient now awake and requesting a drink of water. Patient drank a few sips of water without difficulty. Hemodynamic numbers
repeated: C.O. 3.48 C.I. 2.07 SVR 1494 PAP 37/17 (24) CVP 8. Patient back to sleep. No further changes from previous assessment.
[2025-05-20 01:11] LABS: Glucose - Point of Care 85 mg/dl (70-99)
[2025-05-20] MEDS: ZOFRAN 4 MG IV (02:23)
[2025-05-20 03:27] LABS: Glucose - Point of Care 81 mg/dl (70-99)
[2025-05-20 03:45] LABS: Hematocrit 30.6 % (37.0-47.0); Hemoglobin 10.3 g/dL (12.0-16.0); Mean Corp Hgb Conc. 33.7 g/dL (33.0-37.0); Mean Corpuscular Volume 96.8 fL (81.0-99.0); Platelet Count 147 10^3/uL (130-400); Red Cell Dist. Width 13.2 % (11.5-14.5)
[2025-05-20 04:09] LABS: Blood Urea Nitrogen 27 mg/dl (7-17); Calcium 8.6 mg/dl (8.4-10.2); Carbon Dioxide 19 mmol/L (22-30); Chloride 114 mmol/L (98-107); Estimated Creatinine Clearance 25 ml/min; Glucose 83 mg/dl (70-99); Magnesium 2.3 mg/dl (1.6-2.3); Potassium 4.2 mmol/L (3.5-5.1); Sodium 141 mmol/L (135-145); eGFR 35.23
[2025-05-20] MEDS: DILAUDID 0.25 MG IV (04:09)
[2025-05-20 05:07] LABS: Glucose - Point of Care 85 mg/dl (70-99)
[2025-05-20] MEDS: TYLENOL 1000 MG PO ×3 (05:46→22:42)
--- NOTE | 2025-05-20 06:00 | PTCARENOTE ---
Patient A+A+Ox3. No neurological deficits noted. No c/o headache, dizziness or lightheadedness. C.O. 3.61 C.I. 2.15 SVR 1373 PAP 39/14 (24) CVP 8. Patient with c/o nausea. Zofran 4mg IV administered with positive relief provided. AM lab
work collected and sent. EKG completed - DIVER PUMPER paused pacemaker - Sinus Rhythm with marked Sinus Arrhythmia. Portable CXR completed. Patient de-lined per DIVER PUMPER order without difficulty. OOB to chair. Standing scale weight 66.9 kg.
Assessment/Interventions as documented.
--- NOTE | 2025-05-20 07:33 | W.PN.INTV ---
Addendum entered and electronically signed by Indiana Del Real DO 05/20/25 14:58:
Transferred to tele, we will sign off at this time, please call with questions
Original Note:
Today's Communication / Plan
Recommendations
Doing well post extubation, stable on RA
Off pressors, remains on insulin gtt protocol--transitioning to SQ per team
Chest tube management per team
Further postop management
OOB, PT/OT, IS encouraged
Can likely transfer to tele once off all gtts
Assessment
-
Patient is a 79-year-old female with history of hypertension, paroxysmal atrial fibrillation, hyperlipidemia, atrial septal defect, CAD presenting for elective cardiac surgery. She had underwent transesophageal echocardiogram on 03/17/2025 which
showed normal EF and large atrial septal defect with ltvh-op-hcqtc shunting on color flow. She then underwent cardiac catheterization on 03/17/2025 demonstrating LAD disease. Underwent left atrial maze, single-vessel coronary bypass, closure of
atrial septal defect on 05/19/2025. Transferred postoperatively to CVICU for further management.
ASD and LAD dx s/p left atrial maze/Left atrial appendage exclusion/Single-vessel coronary artery bypass grafting [HANDY to LAD]/Patch closure of atrial septal defect 05/19/25
Postop anemia
ABI on CKD (creat BL 1.3)
Conditions present IP PARALEGAL
Paroxysmal atrial fibrillation
Atrial septal defect, secundum type with elevated shunt fraction
Single-vessel coronary artery disease involving the LAD
Mild tricuspid valve insufficiency
Mitral valve prolapse with mild to trace MR
Osteoarthritis
Former smoker
Hypertension
Hyperlipidemia
Colonic polyps and diverticulosis
Plan
S/p ASD closure/CAB x 1 POD #1
Titrated off pressors per protocol
ECHO reviewed with normal function
PA catheter discontinued
Management of chest tubes per primary service
Pain control
RASS goal of 0 to -1
Intubated for procedure, extubated and doing well
ABG(s) reviewed/adequate
CXR with stable post changes
Maintain supplement oxygen as needed
No prior history of pulmonary disease/No Prior PFT for review
Can add nebulizers if needed
Aspiration precautions
Encouraged incentive spirometry, OOB/ambulation/early mobility
Advance diet as tolerated following extubation
GI prophylaxis if indicated for mechanical ventilation >48 hours
Monitor critical I/O's
Zuluaga/chest tube output
Hb/platelets postoperatively stable
Trend CBC for now
Can transfuse if indicated for Hb <7, plt <50 in surgical patients
DVT prophylaxis including SCDs
Insulin protocol initiated and ongoing
Transition to SQ/off as indicated per team
Diagnostic Data
Chest X-Ray: 05/19/25- Mild pulmonary vascular congestion. Haziness of left hemidiaphragm, suggestive of mild left basilar subsegmental atelectasis.
CT Scan: CTA 03/27/25- No acute pathology of the chest identified. Prominent pulmonary trunk suggesting pulmonary hypertension. Clinical correlation recommended. Mild atherosclerotic vascular disease
Small left parapelvic renal cysts. Mild left renal atrophy. Bilateral subcentimeter hypodense thyroid lesions likely benign nodules. Dedicated thyroid ultrasound recommended if not previously evaluated.
Echo: SUDHAKAR 03/17/25- Normal left ventricular size, wall thickness and systolic function. No regional wall motion abnormalities are seen. The ejection fraction is estimated at 60- 65%. Normal right ventricular size and function.
Mild tricuspid regurgitation. Large secundum atrial septal defect with evidence of cfzo-wz-ydsxy shunt by color-flow Doppler.
[facility] 03/17/25- 1. The mid LAD has diffuse up to 70 to 80% stenosis just distal to the takeoff of the diagonal branch. 2. Pulmonary pressures are less than two thirds of the systemic pressures suggesting safety of VSD closure. Given RV dilatation
noted on transthoracic echocardiogram with Qp/Qs showing significant flow across the ASD, recommend ASD closure
PFT's:
Reports and relevant images were personally reviewed.
Critical Care time 31 mins -- The patient is admitted for acute critical illness for the treatment of vital organ failure and/or prevention of further life-threatening conditions. Total care includes time spent in review of history, physical exam,
medications, hemodynamic/ventilator parameters, laboratory data, imaging and discussion with house staff, pharmacy, respiratory therapy, psychology clinician, and nursing.
Subjective Dataa
Subjective Data
Date of Service:
Date of Service: May 20, 2025
Chief Complaint: Engineering Mgr Follow Up
Subjective:
Doing well post extubation, stable on RA
Sitting in chair
Off pressors
Objective Data
Data Reviewed
Vital Signs / I&O / Oxygen:
Vital Signs
Temp Pulse Resp BP Pulse Ox
98.3 F 70 16 116/61 98
05/20/25 04:00 05/20/25 07:05 05/20/25 05:00 05/20/25 06:43 05/20/25 05:00
Intake and Output
05/19/25 05/20/25 05/21/25
06:59 06:59 06:59
Intake Total 2660.5 / 2660.5
Output Total 2240 / 2240
Balance 420.5 / 420.5
SaO2 [CPAP] 99
SaO2 [SIMV] 100
SaO2 98
Nasal Cannula flow liters per 2
minute
Physical Exam
General: Comfortable and Other (NAD)
HEENT: Normocephalic, Anicteric and Moist Mucous Membranes
Cardiovascular: S1-S2 and Regular Rhythm
Respiratory: Clear and Non-Labored Respirations
GI: Soft, Non Distended and Non Tender
Neurology: Awake, Alert, Oriented and No Motor Deficits
Skin: Warm, Dry and Good Color
Labs/Micro/Reports
Lab Data
05/20/25 03:23
05/20/25 03:23
Laboratory Results
05/19/25
10:55
PT 21.2 H
INR 1.82
APTT 25.2
pH 7.48 H
pCO2 31 L
pO2 234 H
HCO3 23.1
O2 Delivery Level
[2025-05-20 07:40] LABS: Glucose - Point of Care 94 mg/dl (70-99)
[2025-05-20] MEDS: SODIUM BICARBONATE 50 MEQ IV ×2 (08:19→11:05)
[2025-05-20] MEDS: NSS IV (08:19)
[2025-05-20] MEDS: LOPRESSOR 12.5 MG PO (08:20)
[2025-05-20] MEDS: MAGNESIUM OXIDE 500 MG PO ×2 (08:20→19:33)
[2025-05-20] MEDS: NEURONTIN 300 MG PO ×2 (08:20→22:42)
[2025-05-20] MEDS: BACTRIM 400 MG/80 MG 1 TABLET PO ×2 (08:20→19:33)
[2025-05-20] MEDS: PLAVIX 75 MG PO (08:22)
[2025-05-20] MEDS: LOW STRENGTH ASPIRIN 81 MG PO (08:22)
[2025-05-20] MEDS: SENOKOT-S 1 TABLET PO ×2 (08:22→19:33)
[2025-05-20] MEDS: PACERONE 200 MG PO (08:22)
[2025-05-20] MEDS: PROTONIX 40 MG PO (08:22)
[2025-05-20] MEDS: LIDOCAINE 4% PATCH 1 PATCH TOPICAL (08:26)
[2025-05-20] MEDS: BACTROBAN 2% OINTMENT 1 APPLIC NASAL ×2 (08:27→19:36)
[2025-05-20 08:29] LABS: B.E. -8.9 mmol/L; O2 Saturation % 99.5 % (94-98); PCO2 30 mmHg (32-35); PO2 96 mmHg (83-108)
[2025-05-20 08:33] LABS: O2 Therapy 2 L
[2025-05-20 08:35] LABS: HCO3 15.8 mmol/L (21-28)
--- NOTE | 2025-05-20 09:07 | W.PN.ANS.POP ---
Anesthesia Post Operative
- Anesthesia Post Op Note
Vital Signs Stable-See Nursing Note: Yes
Airway Patent: Yes
Adequate Pain Control: Yes
Change in Mental Status: No
Current Postoperative Nausea & Vomiting: No
Anesthesia Complications: No
General Anesthetic Recall: No
Unplanned Admission: No
Post Op Hydration Adequate: Yes
--- NOTE | 2025-05-20 09:23 | PTCARENOTE ---
own rhythm SR. 50-60s. 2 amps bicarb given. VSS. weaned to RA. will continue to monitor.
--- NOTE | 2025-05-20 09:57 | W.PN.CARDCBS ---
Today's Communication / Plan
-
Routine postoperative care
Resume losartan, anticoagulation when able
Sinus rhythm with one-to-one conduction underlying a paced V sensed
Impression / Plan
-
Primary News Reporter: Dr. ZA Bender
Assessment:
s/p CABG x1 HANDY to LAD, closure of ASD, VERONIQUE clip, MAZE 05/19/25
ASD
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
LAD disease by cath
Paroxysmal atrial fibrillation
Chronic anticoagulation with Eliquis
Hypertension
MVP
GERD
Hypercholesterolemia
Osteoarthritis
PVCs
Mild peripheral neuropathy
ECHO 02/16/25: EF 60 to 65%, no regional wall motion abnormalities noted, mild TR with PAP 48 mmHg, color flow pattern suggestive of ASD/PFO with yxhk-aa-jzxix flow, trivial pericardial effusion
SUDHAKAR 03/17/2025: EF 60 to 65%, no regional wall motion abnormalities noted, mild TR, large secundum ASD with evidence of jlee-un-dxlbj shunt by Doppler
Plan:
-s/p CABG x1 HANDY to LAD, closure of ASD, VERONIQUE clip, MAZE 05/19/25
- Extubated 05/19/2025, off pressors
- Currently a paced V sensed at 70 bpm; reassessment this a.m. notes intrinsic sinus rhythm 60 bpm; defer epicardial wires to CT surgical team
� Chest tubes in place
� Previously on losartan, triamterene, Eliquis, diltiazem as outpatient; resume anticoagulation when able
� Resume losartan when okay with CT surgical team given blood pressure
-continue post op care
-d/w nursing
Progress Note - News Reporter
Subjective
Date of Service: May 20, 2025
Patient seen and examined this morning. No acute events overnight. Patient resting comfortably in chair. Patient denies lightheadedness, dizziness, near-syncope, syncope, weakness. Notes mild discomfort at incision site.
Objective
Labs:
08/02/25 03:23
05/20/25 03:23
Labs
Hgb 10.3 g/dL (12.0-16.0) L 05/20/25 03:23
Hct 30.6 % (37.0-47.0) L 05/20/25 03:23
Plt Count 147 10^3/uL (130-400) 05/20/25 03:23
PT 21.2 Sec (11.4-14.6) H 05/19/25 10:55
INR 1.82 05/19/25 10:55
APTT 25.2 Sec (23.4-35.0) 05/19/25 10:55
Sodium 141 mmol/L (135-145) 05/20/25 03:23
Potassium 4.2 mmol/L (3.5-5.1) 05/20/25 03:23
BUN 27 mg/dl (7-17) H 05/20/25 03:23
Creatinine 1.5 mg/dL (0.6-1.0) H 05/20/25 03:23
Glucose 83 mg/dl (70-99) 05/20/25 03:23
Vital Signs and I&O:
Vital Signs
Temp Pulse Resp BP Pulse Ox
98.3 F 70 16 134/61 98
05/20/25 04:00 05/20/25 08:20 05/20/25 05:00 05/20/25 08:20 05/20/25 05:00
Vital Signs
Temp Pulse Resp BP Pulse Ox
98.3 F 70 16 134/61 98
05/20/25 04:00 05/20/25 08:20 05/20/25 05:00 05/20/25 08:20 05/20/25 05:00
Intake & Output
05/18/25 05/19/25 05/20/25 05/21/25
06:59 06:59 06:59 06:59
Intake Total 2660.5 / 2670.8 10.3 / 10.3
Output Total 2240 / 2295 55 / 55
Balance 420.5 / 375.8 -44.7 / -44.7
Physical Exam
Physical Exam
GEN: No distress, AO x 3, nasal cannula
HEENT: supple, mmm
LUNGS: CTA B/L, no wheezes/rales
CV: Reg, S1/S2, no murmur
ABD: soft, BS+, NT/ND
EXT: No cyanosis, clubbing, edema
NEURO: Gross non-focal
SKIN: Warm, pink, dry. No rash. Sternotomy incision c/d/i. CTs in place
: dena
[2025-05-20 11:04] LABS: Glucose - Point of Care 132 mg/dl (70-99)
[2025-05-20] MEDS: ANCEF 5 IV (11:05)
--- NOTE | 2025-05-20 17:35 | PTCARENOTE ---
no change from previous assessment. patient remains in SR and RA. VSS. poor appetite. but attempting dinner. will continue to monitor.
[2025-05-20] MEDS: NEURONTIN PO (17:58)
[2025-05-20] MEDS: FERRLECIT 110 MG IV (18:08)
[2025-05-20] MEDS: LIPITOR 40 MG PO (18:08)
[2025-05-20] MEDS: XALATAN OPHTHALMIC SOLUTION 1 DROP OPHTH (18:12)
[2025-05-20] MEDS: ROXICODONE 5 MG PO ×2 (19:33→23:46)
[2025-05-20] MEDS: MUCINEX 600 MG PO (19:33)
[2025-05-20] MEDS: REMOVE LIDOCAINE PATCH 1 PATCH REMOVE (19:34)
--- NOTE | 2025-05-20 20:00 | PTCARENOTE ---
Assumed care of patient at 1900. Patient found in chair at time of assessment. Patient is AOx4, follows commands appropriately, moves all extremities. Lung sounds are diminished throughout, saO2 94% on RA, IS 1500, nonproductive harsh occasional
cough present. Patient has CTx2: L pleural draining serosang to one atrium and 2xmeds draining serosang to another atrium. Heart sounds are audible, there is a rub present on auscultation, patient is SR/SB with long QT on the monitor. Patient has
normal palpable pulses with +1 generalized anasarca. Patient has A+V wires with pacer box settings at 30/10/0.5 however wires currently insulated. Patient has active BS in all four quadrants. There is a fernandes present draining clear yellow urine.
Patient has a small amount of white vaginal discharge present. There is a sternal incision approx with surg adhesive ROXI. There is a R IJ cordis receiving KVO and R hand PIV for intermittent infusion. VSS. Patient given Apryl 5 for pain. Call almazan
within reach.
[2025-05-20] MEDS: TRUSOPT 2% OPHTHALMIC SOLUTION 1 DROP OPHTH (22:43)
[2025-05-21] VITALS: BP 128/62
--- NOTE | 2025-05-21 | PTCARENOTE ---
Patient reassessed. VSS. Remains SR/SB. Additional 5 Apryl administered for pain control. No other complaints at this time. Call almazan within reach.
[2025-05-21 04:00] VITALS: BP 142/68
--- NOTE | 2025-05-21 04:00 | PTCARENOTE ---
Patient reassessed. VSS. Diana for pain management. Remains SR/SB on the monitor. AM hygiene care provided. Call almazan within reach.
[2025-05-21] MEDS: TYLENOL 1000 MG PO ×3 (04:57→21:00)
[2025-05-21] MEDS: ROXICODONE 5 MG PO (04:57)
[2025-05-21 05:21] LABS: Hematocrit 31.0 % (37.0-47.0); Hemoglobin 10.4 g/dL (12.0-16.0); Mean Corp Hgb Conc. 33.5 g/dL (33.0-37.0); Mean Corpuscular Volume 97.8 fL (81.0-99.0); Platelet Count 166 10^3/uL (130-400); Red Cell Dist. Width 13.8 % (11.5-14.5)
[2025-05-21 05:41] LABS: Blood Urea Nitrogen 42 mg/dl (7-17); Calcium 8.4 mg/dl (8.4-10.2); Carbon Dioxide 25 mmol/L (22-30); Chloride 106 mmol/L (98-107); Estimated Creatinine Clearance 20 ml/min; Glucose 156 mg/dl (70-99); Magnesium 2.7 mg/dl (1.6-2.3); Potassium 4.1 mmol/L (3.5-5.1); Sodium 139 mmol/L (135-145); eGFR 24.94
--- NOTE | 2025-05-21 05:54 | W.PN.CT ---
Addendum entered and electronically signed by Reed Rivers MD 05/21/25 09:17:
I saw and examined the patient.
The PA's note was reviewed and I agree with the note.
Comment:
POD#2 - doing well. back in NSR
- Continue to hold BB/amio
- D/C CTs today
- Creat 2.0 (from 1.5), maintain fernandes today
- Light IVF this AM, low-dose lasix later
- OOB/IS/ambulate
Original Note:
Today's Communication / Plan
-
- POD #2
- Doing well.� No major events overnight.
- back in NSR, pacer off, still holding amio/BB
- CTs 2m 45/150 cc L/R PL 20/155 cc out in 12/24 hrs
- UOP 260/500 cc out in 12/24 hrs, Cr uptrending
- wean down/off O2, IS use reinforced
- Continue current meds: atorvastatin, mag ox, asa, PPI, Plavix
- Continue Bactrim for E. coli UTI
- multimodal pain management
- Bowel regimen
- OOB, ambulate as tolerated
Assessment / Plan
-
ASD, PAF, ASCVD in LAD 70-80% stenosis s/p ASD repair, CABG x1 (HANDY to LAD), MAZE, VERONIQUE clip (35 mm) on 05/[address] Lizarraga POD #2
Post op SUDHAKAR LVEF 60%, no RWMA, no flow across ASD, mild TR
Mild tricuspid valve insufficiency
Mitral valve prolapse with mild to trace MR
Osteoarthritis
Former smoker
Hypertension
Hyperlipidemia
Colonic polyps and diverticulosis
Acute post op respiratory insufficiency
E. Coli UTI
Acute post op sinus bradycardia
Acute post op blood loss anemia (expected)
Subjective
Procedure
s/p ASD repair, CABG x1 (HANDY to LAD), MAZE, VERONIQUE clip (35 mm) on 05/[address] Lizarraga
-
Date of Service: May 21, 2025
Objective Data
-
Lab Results
05/21/25 04:52
05/21/25 04:52
PT 21.2 Sec (11.4-14.6) H 05/19/25 10:55
INR 1.82 05/19/25 10:55
APTT 25.2 Sec (23.4-35.0) 05/19/25 10:55
Vital Signs
Vital Signs
Temp Pulse Resp BP Pulse Ox
97.8 F 64 20 142/68 93
05/21/25 03:00 05/21/25 05:05 05/21/25 03:00 05/21/25 04:00 05/21/25 03:00
CT Intake/Output/Weight
05/20/25 05/20/25 05/21/25
06:59 18:59 06:59
Intake Total 798.6 / 2670.8 81.2 / 421.2 340 / 421.2
Output Total 685 / 2295 480 / 805 325 / 805
Balance 113.6 / 375.8 -398.8 / -383.8 15 / -383.8
SaO2: 93
Physical Exam
-
General: Awake, Oriented and AOx3
Cardiovascular: Regular rate & rhythm and No Murmurs
Respiratory: Clear, Equal and Decreased Breath Sounds
Sternum: Stable
Incision: Clean, Dry and Intact
Extremities: Edema +1
Data Reviewed
-
Lab Results: Results Reviewed
Medications: Active Meds Reviewed
Chest X-Ray: Report Reviewed
ECG: Report Reviewed
[2025-05-21 06:00] VITALS: BMI 25.7
--- NOTE | 2025-05-21 08:00 | PTCARENOTE ---
Resumed care of patient from prev RN. Walking rounds done. resting in bed at time of assessment. SR on monitor HR 60s. AV wires preswent and disconnected from temp pacer. settings at 30/10/0.5. + pulses with +1 generalized anasarca. 96% on RA, IS
1750, nonproductive occasional cough. Patient has CTx3 draining serosang to -20 wall suction. (for d/c this am). +BS. poor appetite. fernandes draining clear yellow urine. all surg sites stable and ROXI. R IJ cordis/ R hand PIV patent. will continue to
monitor.
[2025-05-21] MEDS: NSS 500 IV (08:13)
[2025-05-21] MEDS: LIDOCAINE 4% PATCH 1 PATCH TOPICAL (08:14)
[2025-05-21] MEDS: MAGNESIUM OXIDE 500 MG PO (08:14)
[2025-05-21] MEDS: PROTONIX 40 MG PO (08:14)
[2025-05-21] MEDS: PLAVIX 75 MG PO (08:14)
[2025-05-21] MEDS: LOW STRENGTH ASPIRIN 81 MG PO (08:14)
[2025-05-21] MEDS: NEURONTIN PO ×3 (08:15→18:10)
[2025-05-21] MEDS: SENOKOT-S 1 TABLET PO ×2 (08:15→20:17)
[2025-05-21] MEDS: MUCINEX 600 MG PO ×2 (08:15→20:17)
[2025-05-21] MEDS: BACTROBAN 2% OINTMENT 1 APPLIC NASAL ×2 (08:15→20:16)
[2025-05-21] MEDS: LR 500 IV (08:15)
[2025-05-21] MEDS: TRUSOPT 2% OPHTHALMIC SOLUTION 1 DROP OPHTH ×2 (08:24→18:15)
--- NOTE | 2025-05-21 09:31 | W.PN.CARDCBS ---
Today's Communication / Plan
-
Monitor renal function, may require diuretic therapy
Hold initiation of ARB given renal function
Anticoagulation when able
Supportive care
Impression / Plan
-
Primary Mid Teacher: Dr. ZA Bender
Assessment:
s/p CABG x1 HANDY to LAD, closure of ASD, VERONIQUE clip, MAZE 05/19/25
ASD
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
LAD disease by cath
Paroxysmal atrial fibrillation
Chronic anticoagulation with Eliquis
Hypertension
MVP
GERD
Hypercholesterolemia
Osteoarthritis
PVCs
Mild peripheral neuropathy
ABI
ECHO 02/16/25: EF 60 to 65%, no regional wall motion abnormalities noted, mild TR with PAP 48 mmHg, color flow pattern suggestive of ASD/PFO with lszd-ht-ninze flow, trivial pericardial effusion
SUDHAKAR 03/17/2025: EF 60 to 65%, no regional wall motion abnormalities noted, mild TR, large secundum ASD with evidence of afqx-ip-mjlji shunt by Doppler
Plan:
-s/p CABG x1 HANDY to LAD, closure of ASD, VERONIQUE clip, MAZE 05/19/25
- Extubated 05/19/2025, off pressors
- Currently a paced V sensed at 70 bpm; reassessment this a.m. notes intrinsic sinus rhythm 60 bpm; defer epicardial wires to CT surgical team
� Chest tubes in place
� Creatinine 1.5 now 2.0 mild evidence of volume overload on exam however not significant discussed with CT surgery about possible diuresis, they wish to hold off at this time and reduce antibiotic therapy; may require diuretic if volume overloaded
� Previously on losartan, triamterene, Eliquis, diltiazem as outpatient; resume anticoagulation when able
� Resume losartan when okay with CT surgical team given blood pressure
-continue post op care
-d/w nursing, CT surgical team
Progress Note - Mid Teacher
Subjective
Date of Service: May 21, 2025
Patient seen and examined. No acute events overnight. Patient resting comfortably in bed denies any chest pain, shortness of breath, PND, with apnea, or weakness. Notes some fatigue and nausea but no other complaints
Objective
Labs:
05/21/25 04:52
05/21/25 04:52
Labs
Hgb 10.4 g/dL (12.0-16.0) L 05/21/25 04:52
Hct 31.0 % (37.0-47.0) L 05/21/25 04:52
Plt Count 166 10^3/uL (130-400) 05/21/25 04:52
PT 21.2 Sec (11.4-14.6) H 05/19/25 10:55
INR 1.82 05/19/25 10:55
APTT 25.2 Sec (23.4-35.0) 05/19/25 10:55
Sodium 139 mmol/L (135-145) 05/21/25 04:52
Potassium 4.1 mmol/L (3.5-5.1) 05/21/25 04:52
BUN 42 mg/dl (7-17) H 05/21/25 04:52
Creatinine 2.0 mg/dL (0.6-1.0) H 05/21/25 04:52
Glucose 156 mg/dl (70-99) H 05/21/25 04:52
Vital Signs and I&O:
Vital Signs
Temp Pulse Resp BP Pulse Ox
97.8 F 63 20 142/68 93
05/21/25 03:00 05/21/25 07:40 05/21/25 03:00 05/21/25 04:00 05/21/25 05:55
Vital Signs
Temp Pulse Resp BP Pulse Ox
97.8 F 63 20 142/68 93
05/21/25 03:00 05/21/25 07:40 05/21/25 03:00 05/21/25 04:00 05/21/25 05:55
Intake & Output
05/19/25 05/20/25 05/21/25 05/22/25
06:59 06:59 06:59 06:59
Intake Total 2660.5 / 2670.8 431.2 / 431.2
Output Total 2240 / 2295 845 / 845 70 / 70
Balance 420.5 / 375.8 -413.8 / -413.8 -60 / -60
Physical Exam
Physical Exam
GEN: No distress, AO x 3, nasal cannula
HEENT: supple, mmm
LUNGS: CTA B/L, no wheezes/rales
CV: Reg, S1/S2, no murmur
ABD: soft, BS+, NT/ND
EXT: No cyanosis, clubbing; trace bilateral lower extremity edema
NEURO: Gross non-focal
SKIN: Warm, pink, dry. No rash. Sternotomy incision c/d/i. CTs in place
: dena
[2025-05-21] MEDS: LASIX 40 MG IV (11:33)
[2025-05-21 12:00] VITALS: BP 152/75
--- NOTE | 2025-05-21 12:00 | PTCARENOTE ---
d/c chest tubes without incident. will continue to monitor. no additional changes to assessment
[2025-05-21] MEDS: FERRLECIT 110 MG IV (13:41)
[2025-05-21 14:55] VITALS: BP 138/57
[2025-05-21 16:00] VITALS: BP 138/72
--- NOTE | 2025-05-21 17:31 | PTCARENOTE ---
walked to end of nurses station and back. tolerated walking well!
[2025-05-21] MEDS: XALATAN OPHTHALMIC SOLUTION 1 DROP OPHTH (18:14)
[2025-05-21] MEDS: LIPITOR 40 MG PO (18:14)
[2025-05-21 18:33] LABS: Blood Urea Nitrogen 43 mg/dl (7-17); Calcium 8.4 mg/dl (8.4-10.2); Carbon Dioxide 27 mmol/L (22-30); Chloride 101 mmol/L (98-107); Estimated Creatinine Clearance 19 ml/min; Glucose 248 mg/dl (70-99); Potassium 3.6 mmol/L (3.5-5.1); Sodium 135 mmol/L (135-145); eGFR 23.53
--- NOTE | 2025-05-21 20:00 | PTCARENOTE ---
Assumed care of the patient at 1900. Patient in bed, AOx3, forgetful, c/o baseline B/L numbness in her hands. SR bob CM, rates 70's, heart tones audible, pulses palpable, trace generalized edema noted. Lungs dim at the bases on RA, SpO2 92%, no
cough noted at this time. Patient reports difficulty swallowing large pills, given one at a time; appetite poor, abdomen SNT. Zuluaga catheter in place draining clear yellow urine. MS chest incision CDI with Aquacel dressing in place, CT dressing
changed for soiling; site cleansed with CHG and vaseline gauze applied, see worklist. BEBE Solorzano, PIVx1. Plan of care discussed with patient, call almazan within reach, assessment of needs ongoing.
[2025-05-21] MEDS: MAGNESIUM OXIDE PO (20:14)
[2025-05-21] MEDS: REMOVE LIDOCAINE PATCH 1 PATCH REMOVE (20:17)
[2025-05-21 20:19] VITALS: BP 142/71
[2025-05-21] MEDS: NEURONTIN 300 MG PO (21:00)
[2025-05-21] MEDS: KCL 20 MEQ PO (21:36)
[2025-05-21] MEDS: MYLICON 80 MG PO (21:36)
[2025-05-22] VITALS (12 sets, daily range): BP systolic 108–180; BP diastolic 53–85; PULSE 81; O2SAT 94–95; BMI 25.4
--- NOTE | 2025-05-22 | PTCARENOTE ---
Mg held, K PO given, patient resting between care, VSS.
--- NOTE | 2025-05-22 03:51 | W.PN.CT ---
Today's Communication / Plan
-
Plan:
-No major issues overnight. Hemodynamically and neurologically intact
-Bactrim DS d/c'd d/t rising cr
-Cr 1.9, down from 2.1 yesterday, preop 1.7/1.8
-Received IV fluids and Lasix yesterday 05/21
-Keep fernandes for accurate I/O's
-Consider diuresis today, wt up 5 lbs from preop
-D/C cordis
-Keep temporary PW given postop bradycardia, will likely cut before D/C home
-BB and Amiodarone are on hold
-Resume Eliquis for PAF likely tomorrow d/t ABI, hopefully back to preop creatinine by tomorrow (will likely need dose decreased d/t Age and elevated Cr)
-Currently on ASA and Plavix, will need to d/c one when Eliquis resumed
-Encourage use of IS
-OOB into chair/Ambulate
-Likely home tomorrow
Assessment / Plan
-
ASD, PAF, ASCVD in LAD 70-80% stenosis s/p ASD repair, CABG x1 (HANDY to LAD), MAZE, VERONIQUE clip (35 mm) on 05/[address] Lizarraga POD #3
Post op SUDHAKAR LVEF 60%, no RWMA, no flow across ASD, mild TR
Mild tricuspid valve insufficiency
Mitral valve prolapse with mild to trace MR
Osteoarthritis
Former smoker
Hypertension
Hyperlipidemia
Colonic polyps and diverticulosis
Chronic CKD3b
-PAF, on Eliquis @ home
Acute post-op pulmonary insufficiency
E. Coli UTI
Acute post op sinus bradycardia
Acute post op blood loss anemia (expected)
Acute postop ABI on CKD3b (preop Cr 1.7/1.8)
Discussed patient care with: Cardiology, Nursing, Respiratory Therapy, Pharmacy and Care Team
Subjective
-
Date of Service: May 22, 2025
Pt c/o mild incisional pain, otherwise feels well
Objective Data
-
PT 21.2 Sec (11.4-14.6) H 05/19/25 10:55
INR 1.82 05/19/25 10:55
APTT 25.2 Sec (23.4-35.0) 05/19/25 10:55
Vital Signs
Vital Signs
Temp Pulse Resp BP Pulse Ox
98.4 F 62 18 142/71 92
05/22/25 00:15 05/21/25 22:00 05/22/25 00:15 05/21/25 20:19 05/22/25 00:15
CT Intake/Output/Weight
05/21/25 05/21/25 05/22/25
06:59 18:59 06:59
Intake Total 350 / 431.2 560 / 680 120 / 680
Output Total 365 / 845 715 / 945 230 / 945
Balance -15 / -413.8 -155 / -265 -110 / -265
SaO2: 92 (RA)
Physical Exam
-
General: Awake, Oriented and AOx3
Cardiovascular: Regular rate & rhythm, No Murmurs and No Gallop
Respiratory: Decreased Breath Sounds
Sternum: Stable
Incision: Clean, Dry, Intact and Dressing Intact
Extremities: Other (+trace edema)
Data Reviewed
-
Lab Results: Results Reviewed
Medications: Active Meds Reviewed
Chest X-Ray: Report Reviewed and Image Reviewed
ECG: Report Reviewed and Image Reviewed
--- NOTE | 2025-05-22 04:00 | PTCARENOTE ---
Patient reports having slept between care, feels more well rested. POC discussed, encouraged to get more rest prior to OOB around 0600. Patient in agreement. No pain at this time, VSS, fernandes catheter draining clear yellow urine
[2025-05-22 04:41] LABS: Hematocrit 28.2 % (37.0-47.0); Hemoglobin 9.4 g/dL (12.0-16.0); Mean Corp Hgb Conc. 33.3 g/dL (33.0-37.0); Mean Corpuscular Volume 98.3 fL (81.0-99.0); Platelet Count 154 10^3/uL (130-400); Red Cell Dist. Width 13.6 % (11.5-14.5)
[2025-05-22] MEDS: ROXICODONE 5 MG PO ×2 (04:53→21:14)
[2025-05-22] MEDS: CALCIUM GLUCONATE 100 IV (04:54)
[2025-05-22 05:03] LABS: ALT (SGPT) < 10 U/L (0-35); AST (SGOT) 39 U/L (14-36); Albumin 3.1 g/dl (3.5-5.0); Alkaline Phosphatase 45 U/L (38-126); Blood Urea Nitrogen 43 mg/dl (7-17); Calcium 8.4 mg/dl (8.4-10.2); Carbon Dioxide 30 mmol/L (22-30); Chloride 104 mmol/L (98-107); Estimated Creatinine Clearance 21 ml/min; Glucose 125 mg/dl (70-99); Magnesium 2.5 mg/dl (1.6-2.3); Potassium 3.5 mmol/L (3.5-5.1); Sodium 137 mmol/L (135-145); Total Protein 5.2 g/dl (6.3-8.2); eGFR 26.53
--- NOTE | 2025-05-22 05:03 | PTCARENOTE ---
Patient reports having slept between care, feels more well rested. Sternal precautions discussed, patient needs frequent reinforcement. POC discussed, encouraged to get more rest prior to OOB around 0600. Patient in agreement. PRN pain medication,
VSS, Zuluaga catheter draining clear yellow urine. OOB to the toilet to attempt BM, passing flatus. Calcium gluconate infusing.
[2025-05-22] MEDS: KCL ELIXIR 40 MEQ PO ×2 (05:55→20:20)
[2025-05-22] MEDS: TYLENOL 1000 MG PO ×3 (05:56→21:09)
[2025-05-22] MEDS: NSS IV (07:52)
[2025-05-22 07:53] LABS: Glucose - Point of Care 141 mg/dl (70-99)
[2025-05-22] MEDS: LIDOCAINE 4% PATCH 1 PATCH TOPICAL (07:54)
[2025-05-22] MEDS: LOW STRENGTH ASPIRIN 81 MG PO (07:56)
[2025-05-22] MEDS: PROTONIX 40 MG PO (07:56)
[2025-05-22] MEDS: MUCINEX 600 MG PO ×2 (07:57→20:03)
[2025-05-22] MEDS: NEURONTIN 300 MG PO ×2 (07:57→20:03)
[2025-05-22] MEDS: SENOKOT-S 1 TABLET PO ×2 (07:57→20:03)
[2025-05-22] MEDS: BACTROBAN 2% OINTMENT 1 APPLIC NASAL ×2 (07:57→20:03)
[2025-05-22] MEDS: PLAVIX 75 MG PO (07:57)
[2025-05-22] MEDS: TRUSOPT 2% OPHTHALMIC SOLUTION 1 DROP OPHTH ×2 (07:58→20:04)
--- NOTE | 2025-05-22 08:00 | PTCARENOTE ---
Pt in chair for our shift, Pt AAOx3 pleasant, Pt vitals WNL, Pt has trace edema in LE, AV wires intact not connected to pacer box, Pt lung clear dry cough, +gas no BM, no nausea and pain, fernandes cath intact clear yellow urine, cordis and piv intact,
sternal incision approximated and open to air, chest tube sight intact small sero sang drainage
--- NOTE | 2025-05-22 10:00 | PTCARENOTE ---
Epicardial AV wires cut by CT ROSAURA. Margareth d/c per orders, pt tolerated.
--- NOTE | 2025-05-22 10:18 | W.PN.UPDATE ---
Update Note
Progress Note Update
No pacing past 24 hours. Skin cleansed with CHG, Atrial and ventricular wires clipped at skin level.
--- NOTE | 2025-05-22 10:28 | W.PN.CARDCBS ---
Addendum entered and electronically signed by Rich Allen MD 05/22/25 10:33:
eventually resume eliquis on d/c that pt was on at home
Original Note:
Today's Communication / Plan
-
bradycardia resolved with holding beta-dharmesh and amiodarone
Impression / Plan
-
Primary Mushroom Packer: Dr. ZA Bender
Assessment:
s/p CABG x1 HANDY to LAD, closure of ASD, VERONIQUE clip, MAZE 05/19/25
ASD
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
LAD disease by cath
Paroxysmal atrial fibrillation
Chronic anticoagulation with Eliquis
Hypertension
MVP
GERD
Hypercholesterolemia
Osteoarthritis
PVCs
Mild peripheral neuropathy
ABI
ECHO 02/16/25: EF 60 to 65%, no regional wall motion abnormalities noted, mild TR with PAP 48 mmHg, color flow pattern suggestive of ASD/PFO with uqqz-hx-jtytk flow, trivial pericardial effusion
SUDHAKAR 03/17/2025: EF 60 to 65%, no regional wall motion abnormalities noted, mild TR, large secundum ASD with evidence of drru-ot-emaae shunt by Doppler
Plan:
stable cardiology status
bradycardia resolved with holding amio and beta-dharmesh
d/w CT PA
-
Progress Note - Mushroom Packer
Subjective
Date of Service: May 22, 2025
no cp or sob
Objective
Labs:
05/22/25 04:25
05/22/25 04:25
Labs
Hgb 9.4 g/dL (12.0-16.0) L 05/22/25 04:25
Hct 28.2 % (37.0-47.0) L 05/22/25 04:25
Plt Count 154 10^3/uL (130-400) 05/22/25 04:25
PT 21.2 Sec (11.4-14.6) H 05/19/25 10:55
INR 1.82 05/19/25 10:55
APTT 25.2 Sec (23.4-35.0) 05/19/25 10:55
Sodium 137 mmol/L (135-145) 05/22/25 04:25
Potassium 3.5 mmol/L (3.5-5.1) 05/22/25 04:25
BUN 43 mg/dl (7-17) H 05/22/25 04:25
Creatinine 1.9 mg/dL (0.6-1.0) H 05/22/25 04:25
Glucose 125 mg/dl (70-99) H 05/22/25 04:25
Vital Signs and I&O:
Vital Signs
Temp Pulse Resp BP Pulse Ox
98.4 F 71 16 108/53 96
05/22/25 08:00 05/22/25 07:00 05/22/25 08:00 05/22/25 04:00 05/22/25 08:00
Vital Signs
Temp Pulse Resp BP Pulse Ox
98.4 F 71 16 108/53 96
05/22/25 08:00 05/22/25 07:00 05/22/25 08:00 05/22/25 04:00 05/22/25 08:00
Intake & Output
05/20/25 05/21/25 05/22/25 05/23/25
06:59 06:59 06:59 06:59
Intake Total 2660.5 / 2670.8 431.2 / 431.2 810 / 810 250 / 250
Output Total 2240 / 2295 845 / 845 1180 / 1180 45 / 45
Balance 420.5 / 375.8 -413.8 / -413.8 -370 / -370 205 / 205
Physical Exam
Physical Exam
General: Well developed, well nourished in NAD.
Neck: Supple, no JVD, HJR, carotids +2 B/L, no bruits bilaterally.
Heart: Non displaced PMI, RRR, no murmurs, No S3, S4, no rubs.
Lungs: scattered rhonchi
sternal dressings noted
Extremities: No clubbing, cyanosis or edema bilaterally.
Neuro: Grossly nonfocal, awake, alert and oriented x3.
[2025-05-22] MEDS: LASIX 40 MG IV (10:35)
--- NOTE | 2025-05-22 12:00 | PTCARENOTE ---
Pt reassessed. NSR on tele with rates in the 70s. BP 143/69. POX 91% IS encouraged. Surgical sites stable. Pt voiding adequate amounts of clear yellow urine.
[2025-05-22] MEDS: FERRLECIT 110 MG IV (14:10)
--- NOTE | 2025-05-22 14:42 | CM ---
Reviewed chart. Met with Mrs. Cruz to review discharge plans. She states she is feeling tired bit she maybe able to go home soon. She states prior to admission she [facility] with three steps to enter. She states she
has a full flight of steps to get to bedroom/full bathroom. She states she has a powder room on the first floor. She states prior to admission she was independent with ambulation and adls. She states she does not have any DME in the home. She
states she has a prescription plan. She states a good friend will stay with her for awhile. We reviewed a home visit by the Transitional Care Nurse. She is agreeable to home visit. Medical work-up in progress. The discharge plan is to return home
with her friend staying with her and a home visit by the Transitional Care Nurse when medically stable.
--- NOTE | 2025-05-22 16:41 | PTCARENOTE ---
Pt AAOx3 walked to bathroom and back to bed, D/c'ed cordis
[2025-05-22] MEDS: LIPITOR 40 MG PO (17:24)
[2025-05-22] MEDS: XALATAN OPHTHALMIC SOLUTION 1 DROP OPHTH (17:24)
[2025-05-22] MEDS: REMOVE LIDOCAINE PATCH 1 PATCH REMOVE (20:03)
[2025-05-22] MEDS: ELIQUIS 5 MG PO (20:03)
--- NOTE | 2025-05-22 21:30 | PTCARENOTE ---
Assumed care of pt from dayshift RN. Walking rounds completed. Pt is SR on the tele monitor. HR 70s. BP stable. Palpable pulses throughout. Trace generalized edema. Pt 96% on RA. Lung sounds diminished in B/L bases. Deep breathing and IS encouraged.
Pt abdomen nontender. +BSx4. Pt voiding w/o issue. Pt out of the chair/bed to void w/ assist x1. All surgical sites stable. CT dressing changed. Right arm PIV intact. See worklist for full nursing assessment and interventions. See MAR for medication
administration. Call almazan within reach.
[2025-05-23] VITALS (7 sets, daily range): BP systolic 105–150; BP diastolic 65–79; PULSE 81; O2SAT 94–96; BMI 25.0
--- NOTE | 2025-05-23 00:02 | PTCARENOTE ---
No acute change in assessment. VSS. SR on the tele monitor. HR 60s. No c/o pain at this time. Call almazan within reach.
--- NOTE | 2025-05-23 03:28 | PTCARENOTE ---
No change in assessment. Pt is SR on the tele monitor. VSS. RA. Pt assisted OOB to void in the bathroom and then repositioned back into bed. Labs drawn and sent. Call almazan within reach.
[2025-05-23 03:55] LABS: Hematocrit 30.5 % (37.0-47.0); Hemoglobin 10.2 g/dL (12.0-16.0); Mean Corp Hgb Conc. 33.4 g/dL (33.0-37.0); Mean Corpuscular Volume 97.1 fL (81.0-99.0); Platelet Count 186 10^3/uL (130-400); Red Cell Dist. Width 13.9 % (11.5-14.5)
[2025-05-23 04:08] LABS: Blood Urea Nitrogen 39 mg/dl (7-17); Calcium 8.9 mg/dl (8.4-10.2); Carbon Dioxide 30 mmol/L (22-30); Chloride 102 mmol/L (98-107); Estimated Creatinine Clearance 23 ml/min; Glucose 122 mg/dl (70-99); Magnesium 2.4 mg/dl (1.6-2.3); Potassium 3.7 mmol/L (3.5-5.1); Sodium 137 mmol/L (135-145); eGFR 30.32
--- NOTE | 2025-05-23 04:13 | W.PN.CT ---
Today's Communication / Plan
-
Plan:
-No major issues overnight. Hemodynamically and neurologically intact
-Bactrim DS d/c'd d/t rising cr
-Postop bradycardia has resolved, HR 90's during day, 62 bpm @ night. Will resume low dose home BB (12.5 mg Toprol XL Qdaily). Will cont. to hold Amiodarone
-Resumed Eliquis last night for PAF S/P MAZE, currently in NSR. ASA has been d/c'd, on Eliquis and Plavix
-Creatinine back to baseline of 1.7, down from 1.9 yesterday, preop 1.7/1.8
-Received 40 mg IV Lasix yesterday
-Will replete K of 3.7
-Check wt today
-F/U 2-view cxr
-Temporary PW cut yesterday 05/22 without incident
-Encourage use of IS
-OOB into chair/Ambulate
-Home today
Assessment / Plan
-
ASD, PAF, ASCVD in LAD 70-80% stenosis s/p ASD repair, CABG x1 (HANDY to LAD), MAZE, VERONIQUE clip (35 mm) on 05/[address] Lizarraga POD #4
Post op SUDHAKAR LVEF 60%, no RWMA, no flow across ASD, mild TR
Mild tricuspid valve insufficiency
Mitral valve prolapse with mild to trace MR
Osteoarthritis
Former smoker
Hypertension
Hyperlipidemia
Colonic polyps and diverticulosis
Chronic CKD3b
PAF, on Eliquis @ home
Acute post-op pulmonary insufficiency
E. Coli UTI
Acute post op sinus bradycardia
Acute post op blood loss anemia (expected)
Acute postop ABI on CKD3b (preop Cr 1.7/1.8)
Discussed patient care with: Cardiology, Nursing, Respiratory Therapy, Pharmacy and Care Team
Subjective
-
Date of Service: May 23, 2025
Pt c/o mild incisional pain, otherwise feels well
Objective Data
-
Lab Results
05/23/25 03:24
05/23/25 03:24
PT 21.2 Sec (11.4-14.6) H 05/19/25 10:55
INR 1.82 05/19/25 10:55
APTT 25.2 Sec (23.4-35.0) 05/19/25 10:55
Vital Signs
Vital Signs
Temp Pulse Resp BP Pulse Ox
98.2 F 73 20 144/75 93
05/23/25 03:16 05/23/25 03:16 05/23/25 03:16 05/23/25 03:15 05/23/25 03:16
CT Intake/Output/Weight
05/22/25 05/22/25 05/23/25
06:59 18:59 06:59
Intake Total 250 / 810 500 / 500
Output Total 465 / 1180 1120 / 1270 150 / 1270
Balance -215 / -370 -620 / -770 -150 / -770
SaO2: 93 (RA)
Physical Exam
-
General: Awake, Oriented and AOx3
Cardiovascular: Regular rate & rhythm, No Murmurs, No Rub and No Gallop
Respiratory: Decreased Breath Sounds (at bases, otherwise clear)
Sternum: Stable
Incision: Clean, Dry, Intact and Dressing Intact
Extremities: Other (+trace edema)
Data Reviewed
-
Lab Results: Results Reviewed
Medications: Active Meds Reviewed
Chest X-Ray: Report Reviewed and Image Reviewed
ECG: Report Reviewed and Image Reviewed
[2025-05-23] MEDS: KCL ELIXIR 40 MEQ PO (04:56)
[2025-05-23] MEDS: NSS IV (04:57)
[2025-05-23] MEDS: TYLENOL 1000 MG PO (05:00)
--- NOTE | 2025-05-23 07:30 | PTCARENOTE ---
Assumed care of patient from overnight houseperson RN. AAO x 3 Sitting up in the chair. SR on monitor. Room air 96%. Abdomen benign. Voiding independently. Surgical sites well approximated. Pulses palpable. Plan for day discussed.
[2025-05-23] MEDS: SENOKOT-S PO (07:39)
[2025-05-23] MEDS: LIDOCAINE 4% PATCH TOPICAL (07:39)
--- NOTE | 2025-05-23 08:28 | W.DCSUMMARY ---
Discharge Summary
Discharge Data
Date of Admission: 05/19/25
Date of Discharge: 05/23/25
-
Pending Results: No
Hospital Course
Primary care physician: Silvestre Carranza
Outpatient trimming machine operator: Tulio Bender
Inpatient consultants: [facility] cardiology, pulmonary assistant spa director
Procedures:
1. Patch closure of atrial septal defect, CABG x 1 (HANDY-LAD), Full left atrial maze using RF ablation and cryo, left atrial appendage exclusion
Primary Diagnosis:
1. Atrial septal defect, secundum
Secondary Diagnoses:
1. Paroxysmal atrial fibrillation
2. Single-vessel coronary artery disease
3. Mild tricuspid valve insufficiency
4. Mitral valve prolapse with mild to trace MR
5. Osteoarthritis
6. Hypertension
7. Hyperlipidemia
8. Colonic polyps and diverticulosis
9. Glaucoma
10. Chronic CKD3b
11. Pre-op E. Coli UTI
Acute post-op pulmonary insufficiency
Acute post op sinus bradycardia
Acute post op blood loss anemia (expected)
Acute postop ABI on CKD3b (preop Cr 1.7/1.8)
Acute postop tiny left apical pneumothorax (<5%)
HPI: 79-year-old female was electively admitted on 05/19/2025 for ASD repair and CABG x 1 with MAZE and clip due to large secundum atrial septal defect, single-vessel coronary disease (LAD) and history of paroxysmal atrial fibrillation.
Hospital course: Patient was brought to the operating room and underwent patch closure of atrial septal defect, CABG x 1 (HANDY-LAD), Full left atrial maze using RF ablation and cryo, left atrial appendage exclusion (#35mm clip) by Dr. Noam Lizarraga.
For further details, please see operative report. Postprocedure SUDHAKAR reported an EF of 60%, no flow across the atrial septum, and no flow beyond the left atrial clip. Patient received no intraoperative blood products and returned to CVICU on Cardene
which was quickly weaned off. Patient required atrial pacing for sinus bradycardia. Patient was extubated 1615 on the day of surgery. Eliquis and Plavix were initiated as anticoagulation for graft and history of PAF. Insulin was discontinued as
patient not diabetic and patient was transitioned to telemetry status.On postoperative day #2, creatinine bumped to 2.1 from baseline of 1.8. Gabapentin was decreased to 300 mg twice daily dosing due to creatinine. Patient was diuresed with 40 mg
of IV Lasix. Zuluaga was kept for critical care I &O measurement. On postoperative day #3, atrial and ventricular temporary wires were clipped to skin level this patient required no pacing the past 24 hours. Patient was again diuresed with 40 mg of
IV Lasix with 1325 cc urine output in 24 hours. On postop day #4, creatinine decreased to her baseline level of 1.7. A two-view chest x-ray reported Minimal left apical pneumothorax (less than 5% of the lung volume), small bilateral pleural
effusions (left larger than right), with mild interstitial and alveolar pulmonary edema. Patient ambulated in halls and completed stairs with cardiac rehab. She is deemed stable for discharge to home. Prophylactic amiodarone was discontinued on
discharge as no episodes of arrhythmias were noted during hospitalization. Diltiazem and triamterene were held on discharge due to low normal range blood pressure. Lasix 20 mg daily x 2 doses added to discharge regimen. Patient will be followed by
transitional nurse team.
Home medication changes:
Pepcid changed to Protonix while on Eliquis
Gabapentin decreased from TID to BID dosing due to elevated creatinine
Lasix 20mg daily x 5
Stop Diltiazem and tramterene
Discharge Plan
-
Patient Disposition: Home (Routine Discharge)
Discharge Diagnosis/Procedures: atrial septal defect repair, CABG x 1, MAZE, left atrial appendage clip (05/19/25)-Dr Lizarraga
Condition: Good
Diet: Low Cholesterol and Low Sodium
Activity: No strenuous activity
Driving Restrictions: Not until seen by your Dr
Bathing Restrictions: OK to Shower
Blood Work: BMP in 1 week
Others Tests: CXR (PA & lat) in 1 week
Other Services: Cardiac Rehab
Specialty Instructions: Weigh Daily- Call MD for wt gain/loss 3 lbs overnight/5 lbs in 1 week
Referrals:
CT Transitional Care Nurse [Outside]
[facility]. Cardiac Rehab [Outside] - 06/28/25 10:00 am
Referral Note: Cardiac Rehab Orientation� and� First Exercise appointment is on ___06/28 at 10:00 am.
The Cardiac Rehab gym is located on the first floor of the [facility].
Silvestre Carranza MD [Family Provider, Internal Medicine]
Carline Carter CRNP [Specified Professional Personl, Cardiology] - 06/22/25 1:30 pm
Roxann Velasquez CRNP [Specified Professional Personl, Cardiac Surgery] - 06/14/25 11:30 am
Prescriptions:
New
cyclobenzaprine 10 mg Tablet
5 mg PO Q8HPRN PRN (Reason: muscle spasm) Qty: 10 0RF
clopidogrel 75 mg Tablet
75 mg PO DAILY Qty: 30 2RF
acetaminophen 325 mg Tablet
650 mg PO Q4HPRN PRN (Reason: mild pain,headache,temp >101F ) Qty: 0 0RF
pantoprazole 40 mg Tablet,Delayed Release (Dr/Ec)
40 mg PO DAILY Qty: 30 2RF
gabapentin 300 mg Capsule
300 mg PO BID Qty: 60 1RF
oxycodone 5 mg Tablet
5 mg PO Q4HPRN PRN (Reason: severe pain) Qty: 10 0RF
furosemide [Lasix] 20 mg tablet
20 mg PO DAILY Qty: 5 0RF
Continued
acyclovir 200 MG capsule
200 mg PO DAILYPRN PRN (Reason: cold sores)
eszopiclone [Lunesta] 3 MG tablet
3 mg PO HS
multivitamin Tablet
1 tab PO DAILY
fexofenadine 180 mg Tablet
180 mg PO DAILY
Eliquis 5 mg Tablet
5 mg PO BID
latanoprost 0.005 % Drops
1 drp OPHTHALMIC (EYE) QPM
dorzolamide 2 % Drops
1 drp OPHTHALMIC (EYE) BID
carboxymethylcellulose sodium 1 % Drops, Liquid Gel
2 drp OPHTHALMIC (EYE) BID PRN (Reason: dry eye)
diclofenac sodium 1 % Gel
2 g TOPICAL QID
losartan 50 MG tablet
50 mg PO DAILY
Rx Instructions:
HOLD if systolic blood pressure <130 while on Oxycodone.
metoprolol succinate 25 mg tablet extended release 24 hr
25 mg PO DAILY
atorvastatin 40 mg tablet
40 mg PO QPM Qty: 90 10RF
Discontinued
diltiazem HCl 180 MG capsule,extended release 24 hr
180 mg PO DAILY
famotidine [Pepcid] 20 mg Tablet
20 mg PO DAILY
magnesium
1 tab PO DAILY
gabapentin 300 mg capsule
300 mg PO TID
triamterene-hydrochlorothiazid 37.5-25 mg tablet
1 tab PO DAILY
Discharge Orders:
Discharge Patient (As Directed); Ordered 05/23/25
Ordered By: Kylah Lujan
Care Plan Goals
Care Plan Goals:
Problem: Readiness for enhanced knowledge related to diagnosis and treatment plan
Goal: Understand your diagnosis and treatment plan needs, including medications if applicable.
Instructions: Know your diagnosis, underlying causes and treatment plan options, including medications if applicable. Consult with your health care team to learn about your diagnosis and treatment plan, including medications if applicable.
Discharge Date and Time
Print Language: LUXEMBOURGISH
[2025-05-23] MEDS: BACTROBAN 2% OINTMENT 1 APPLIC NASAL (08:34)
[2025-05-23] MEDS: MUCINEX 600 MG PO (08:35)
[2025-05-23] MEDS: PLAVIX 75 MG PO (08:35)
[2025-05-23] MEDS: NEURONTIN 300 MG PO (08:35)
[2025-05-23] MEDS: TOPROL XL 25 MG PO (08:35)
[2025-05-23] MEDS: ELIQUIS 5 MG PO (08:35)
[2025-05-23] MEDS: PROTONIX 40 MG PO (08:35)
[2025-05-23] MEDS: TRUSOPT 2% OPHTHALMIC SOLUTION 1 DROP OPHTH (08:36)
[2025-05-23] MEDS: COZAAR 50 MG PO (10:48)
--- NOTE | 2025-05-23 11:59 | CM ---
Reviewed chart. Met with Mrs. Cruz to review discharge plans. She states she is still feeling tired but she maybe able to go home soon. We reviewed a home visit by the Transitional Care Nurse. She is agreeable to a home visit. She states she
ambulated in the hallway today and did the stairs. She states a friend will stay with her awhile to assist in her care if needed. Prior to admission she resides alone in a two story townhouse with three steps to enter. She has a full flight of
steps to get to bedroom/full bathroom. She has a powder room on the first floor. Prior to admission she was independent with ambulation and adls. She does not have any DME in the home. She has a prescription plan . Medical work-up in progress.
The discharge plan is to return home with a friend staying with her and a home visit by the Transitional Care Nurse when medically stable.
--- NOTE | 2025-05-23 13:00 | PTCARENOTE ---
discharge instructions reviewed with patient. States understanding. INT and telemetry pack removed, assisted into shower, tolerated CHG soap shower. Assisted with dressing and then wheeled to car by RN.
--- NOTE | 2025-05-23 14:52 | W.PN.CARDCBS ---
Today's Communication / Plan
-
Stable cardiology status for discharge
Impression / Plan
-
Primary Check Writer: Dr. ZA Bender
Assessment:
s/p CABG x1 HANDY to LAD, closure of ASD, VERONIQUE clip, MAZE 05/19/25
ASD
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
LAD disease by cath
Paroxysmal atrial fibrillation
Chronic anticoagulation with Eliquis
Hypertension
MVP
GERD
Hypercholesterolemia
Osteoarthritis
PVCs
Mild peripheral neuropathy
ABI
ECHO 02/16/25: EF 60 to 65%, no regional wall motion abnormalities noted, mild TR with PAP 48 mmHg, color flow pattern suggestive of ASD/PFO with [id number] flow, trivial pericardial effusion
SUDHAKAR 03/17/2025: EF 60 to 65%, no regional wall motion abnormalities noted, mild TR, large secundum ASD with evidence of [id number] shunt by Doppler
Plan:
stable cardiology status
d/w CT PA
-
Progress Note - Check Writer
Subjective
Date of Service: May 23, 2025
No chest pain or shortness of breath
Objective
Labs:
05/23/25 03:24
05/23/25 03:24
Labs
Hgb 10.2 g/dL (12.0-16.0) L 05/23/25 03:24
Hct 30.5 % (37.0-47.0) L 05/23/25 03:24
Plt Count 186 10^3/uL (130-400) D 05/23/25 03:24
PT 21.2 Sec (11.4-14.6) H 05/19/25 10:55
INR 1.82 05/19/25 10:55
APTT 25.2 Sec (23.4-35.0) 05/19/25 10:55
Sodium 137 mmol/L (135-145) 05/23/25 03:24
Potassium 3.7 mmol/L (3.5-5.1) 05/23/25 03:24
BUN 39 mg/dl (7-17) H 05/23/25 03:24
Creatinine 1.7 mg/dL (0.6-1.0) H 05/23/25 03:24
Glucose 122 mg/dl (70-99) H 05/23/25 03:24
Vital Signs and I&O:
Vital Signs
Temp Pulse Resp BP Pulse Ox
98.7 F 71 16 105/68 96
05/23/25 11:36 05/23/25 12:00 05/23/25 11:36 05/23/25 11:50 05/23/25 11:36
Vital Signs
Temp Pulse Resp BP Pulse Ox
98.7 F 71 16 105/68 96
05/23/25 11:36 05/23/25 12:00 05/23/25 11:36 05/23/25 11:50 05/23/25 11:36
Intake & Output
05/21/25 05/22/25 05/23/25 05/24/25
06:59 06:59 06:59 06:59
Intake Total 431.2 / 431.2 810 / 810 500 / 500 360 / 360
Output Total 845 / 845 1180 / 1180 1370 / 1370 250 / 250
Balance -413.8 / -413.8 -370 / -370 -870 / -870 110 / 110
Physical Exam
Physical Exam
General: Well developed, well nourished in NAD.
Neck: Supple, no JVD, HJR, carotids +2 B/L, no bruits bilaterally.
Heart: Non displaced PMI, RRR, no murmurs, No S3, S4, no rubs.
Lungs: Scattered rhonchi
Sternal dressings noted
Extremities: No clubbing, cyanosis or edema bilaterally.
Neuro: Grossly nonfocal, awake, alert and oriented x3.
== END 2025-05-23 13:30 | disposition home or self-care (01) | DRG 234 ==
LOC: CVICU 05:20
PROVIDERS: Anesthesiology; Nurse Practitioner; Physician Assistant Surgical; ADMITTING PHYSICIAN Thoracic Surgery (Cardiothoracic Vascular Surgery); CONSULT PHYSICIAN Internal Medicine; FAMILY PHYSICIAN Internal Medicine
PROC: 5A1221Z Performance of Cardiac Output, Continuous (ICD-10-PCS; 2025-05-19)
PROC: 02U508Z Supplement Atrial Septum with Zooplastic Tissue, Open Approach (ICD-10-PCS; 2025-05-19)
PROC: 02580ZZ Destruction of Conduction Mechanism, Open Approach (ICD-10-PCS; 2025-05-19)
PROC: B24BZZ4 Ultrasonography of Heart with Aorta, Transesophageal (ICD-10-PCS; 2025-05-19)
PROC: 02L70CK Occlusion of Left Atrial Appendage with Extraluminal Device, Open Approach (ICD-10-PCS; 2025-05-19)
PROC: 02100Z9 Bypass Coronary Artery, One Artery from Left Internal Mammary, Open Approach (ICD-10-PCS; 2025-05-19)
DX: Q21.11 Secundum atrial septal defect (principal); N17.9 Acute kidney failure, unspecified; N39.0 Urinary tract infection, site not specified; J95.811 Postprocedural pneumothorax; D62 Acute posthemorrhagic anemia; I48.0 Paroxysmal atrial fibrillation; I25.10 Atherosclerotic heart disease of native coronary artery without angina pectoris; I36.1 Nonrheumatic tricuspid (valve) insufficiency; I34.1 Nonrheumatic mitral (valve) prolapse; I12.9 Hypertensive chronic kidney disease with stage 1 through stage 4 chronic kidney disease, or unspecified chronic kidney disease; M19.90 Unspecified osteoarthritis, unspecified site; N18.32 Chronic kidney disease, stage 3b; B96.20 Unspecified Escherichia coli [E. coli] as the cause of diseases classified elsewhere; H40.9 Unspecified glaucoma; R00.1 Bradycardia, unspecified; E78.00 Pure hypercholesterolemia, unspecified; K21.9 Gastro-esophageal reflux disease without esophagitis; G62.9 Polyneuropathy, unspecified; I49.3 Ventricular premature depolarization; Z79.01 Long term (current) use of anticoagulants; N99.0 Postprocedural (acute) (chronic) kidney failure; Y83.2 Surgical operation with anastomosis, bypass or graft as the cause of abnormal reaction of the patient, or of later complication, without mention of misadventure at the time of the procedure; R06.89 Other abnormalities of breathing; B00.1 Herpesviral vesicular dermatitis; Z79.82 Long term (current) use of aspirin; Z79.899 Other long term (current) drug therapy; Z87.891 Personal history of nicotine dependence
CPT/HCPCS: 33259; 36415; 36600; 71045; 71046; 80048; 80053; 81003; 81015; 82248; 82330; 82565; 82805; 82810; 82947; 82962; 83036; 83605; 83735; 84132; 84302; 84520; 85014; 85018; 85025; 85027; 85049; 85610; 85730; 86850; 86900; 86901; 86920; 87070; 87077; 87086; 87186; 93005; 93312; 93320; 93325; 93880; 94002; C1768; J2916; P9045; P9047

== ENCOUNTER → 2025-05-30 08:11 | Outpatient (REF) | payer MEDICARE, OTHER, SELFPAY ==
[2025-05-30 10:28] LABS: Blood Urea Nitrogen 21 mg/dl (7-17); Calcium 9.2 mg/dl (8.4-10.2); Carbon Dioxide 27 mmol/L (22-30); Chloride 107 mmol/L (98-107); Glucose 119 mg/dl (70-99); Potassium 3.9 mmol/L (3.5-5.1); Sodium 139 mmol/L (135-145); eGFR 51.11
== END ==
LOC: HWLAB 08:11
PROVIDERS: ATTENDING PHYSICIAN Thoracic Surgery (Cardiothoracic Vascular Surgery); FAMILY PHYSICIAN Internal Medicine
DX: J90 Pleural effusion, not elsewhere classified (principal); N28.9 Disorder of kidney and ureter, unspecified
CPT/HCPCS: 36415; 71046; 80048

== ENCOUNTER 2025-07-17 10:09 | Outpatient (RCR) | payer MEDICARE, OTHER, SELFPAY ==
[2025-07-04 11:01] LABS: HDL Cholesterol 66 mg/dl; LDL Cholesterol, Calculated 70 mg/dl; Very Low Density Lipoprotein 17 mg/dl (0-30)
== END 2025-07-17 23:59 | disposition home or self-care (01) ==
LOC: CRHB 10:09
PROVIDERS: ATTENDING PHYSICIAN Internal Medicine Cardiovascular Disease; FAMILY PHYSICIAN Internal Medicine; OTHER PHYSICIAN Internal Medicine Cardiovascular Disease
DX: I25.10 Atherosclerotic heart disease of native coronary artery without angina pectoris (principal); Z95.1 Presence of aortocoronary bypass graft
CPT/HCPCS: 36415; 80061; G0422; G0423

== ENCOUNTER 2025-08-18 10:40 | Outpatient (RCR) | payer MEDICARE, OTHER, SELFPAY | END 2025-08-18 23:59 | disposition home or self-care (01) | LOC: CRHB 10:40 | PROVIDERS: ATTENDING PHYSICIAN Internal Medicine Cardiovascular Disease; FAMILY PHYSICIAN Internal Medicine; OTHER PHYSICIAN Internal Medicine Cardiovascular Disease | DX: I25.10 Atherosclerotic heart disease of native coronary artery without angina pectoris (principal); Z95.1 Presence of aortocoronary bypass graft | CPT/HCPCS: G0422; G0423 ==

== ENCOUNTER 2025-09-15 10:00 | Outpatient (RCR) | payer MEDICARE, OTHER, SELFPAY | END 2025-09-15 23:59 | disposition home or self-care (01) | LOC: CRHB 10:00 | PROVIDERS: ATTENDING PHYSICIAN Internal Medicine Cardiovascular Disease; FAMILY PHYSICIAN Internal Medicine; OTHER PHYSICIAN Internal Medicine Cardiovascular Disease | DX: I25.10 Atherosclerotic heart disease of native coronary artery without angina pectoris (principal); Z95.1 Presence of aortocoronary bypass graft | CPT/HCPCS: G0422; G0423 ==

== ENCOUNTER 2025-09-20 11:32 | Outpatient (RCR) | payer MEDICARE, OTHER, SELFPAY | END 2025-09-21 11:47 | disposition home or self-care (01) | LOC: CRHB 11:32 | PROVIDERS: ATTENDING PHYSICIAN Internal Medicine Cardiovascular Disease; FAMILY PHYSICIAN Internal Medicine; OTHER PHYSICIAN Internal Medicine Cardiovascular Disease | DX: I25.10 Atherosclerotic heart disease of native coronary artery without angina pectoris (principal); Z95.1 Presence of aortocoronary bypass graft | CPT/HCPCS: 93798; G0422; G0423 ==

== ENCOUNTER → 2025-09-29 09:20 | Outpatient (REF) | payer MEDICARE, OTHER, SELFPAY ==
[2025-09-29 10:47] LABS: Hematocrit 39.9 % (37.0-47.0); Hemoglobin 12.9 g/dL (12.0-16.0); Mean Corp Hgb Conc. 32.3 g/dL (33.0-37.0); Mean Corpuscular Volume 96.1 fL (81.0-99.0); Nucleated Red Blood Cells % 0 %; Platelet Count 278 10^3/uL (130-400); Red Cell Dist. Width 14.6 % (11.5-14.5)
[2025-09-29 11:11] LABS: ALT (SGPT) 15 U/L (0-35); AST (SGOT) 26 U/L (14-36); Albumin 4.2 g/dl (3.5-5.0); Alkaline Phosphatase 59 U/L (38-126); Blood Urea Nitrogen 32 mg/dl (7-17); Calcium 10.0 mg/dl (8.4-10.2); Carbon Dioxide 27 mmol/L (22-30); Chloride 105 mmol/L (98-107); Glucose 93 mg/dl (70-99); HDL Cholesterol 79 mg/dl; LDL Cholesterol, Calculated 97 mg/dl; Magnesium 2.1 mg/dl (1.6-2.3); Potassium 4.5 mmol/L (3.5-5.1); Sodium 139 mmol/L (135-145); Total Protein 7.3 g/dl (6.3-8.2); Very Low Density Lipoprotein 13 mg/dl (0-30); eGFR 30.13
== END ==
LOC: REG 09:20
PROVIDERS: ATTENDING PHYSICIAN Nurse Practitioner; FAMILY PHYSICIAN Internal Medicine; OTHER PHYSICIAN Internal Medicine Cardiovascular Disease
DX: I48.0 Paroxysmal atrial fibrillation (principal); E78.00 Pure hypercholesterolemia, unspecified
CPT/HCPCS: 36415; 80053; 80061; 83735; 85025

== ENCOUNTER → 2025-10-18 10:51 | Outpatient (REF) | payer MEDICARE, OTHER, SELFPAY | LOC: HWRCS 10:51 | PROVIDERS: ATTENDING PHYSICIAN Internal Medicine Cardiovascular Disease; FAMILY PHYSICIAN Internal Medicine | DX: Q21.10 Atrial septal defect, unspecified (principal); I34.1 Nonrheumatic mitral (valve) prolapse | CPT/HCPCS: 93306 ==